=== PATIENT | female | born 2005 | race Caucasian/White ===

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

== ENCOUNTER 2024-02-07 05:33 | Outpatient (CLI) | payer OTHER, SELFPAY ==
[2024-02-07 14:58] LABS: Abs Immature Grans 0.01 10^3/uL (0.0-0.06); Absolute Basophil Count 0.02 10^3/uL (0.0-0.2); Absolute Eosinophil Count 0.03 10^3/uL (0.0-0.7); Absolute Lymphocyte Count 2.18 10^3/uL (1.2-3.4); Absolute Monocyte Count 0.26 10^3/uL (0.1-0.8); Absolute Neutrophil Count 3.88 10^3/uL (1.2-6.7); Basophils % 0.3; Eosinophils % 0.5; HCT 42.3 % (36.0-46.0); HGB 13.9 g/dL (11.2-15.7); Immature Grans % 0.2; Lymphocytes % 34.2; MCH 28.9 pg (27.0-33.0); MCHC 32.9 % (32.0-36.0); MCV 88 fL (80-95); MPV 10.3 fL (8.0-11.0); Monocytes % 4.1; Neutrophils % 60.7; Platelet Count 238 10^3/uL (130-400); RBC 4.81 10^6/uL (3.93-5.22); RDW 12.2 % (11.7-14.6); WBC 6.38 10^3/uL (4.4-10.8)
[2024-02-07 16:35] LABS: ALT 18 U/L (14-59); AST 14 U/L (15-37); Albumin 4.2 g/dL (3.4-5.0); Alkaline Phosphatase 49 U/L (46-116); Anion Gap 8.5 mmol/L (3-11); BUN 12 mg/dL (7-18); Bilirubin, Total 0.6 mg/dL (0.2-1.0); CO2 27.5 mmol/L (21.0-32.0); CREATININE 0.6 mg/dL (0.55-1.02); Calcium 8.8 mg/dL (8.5-10.1); Chloride 105 mmol/L (98-107); Glucose 104 mg/dL (74-106); Potassium 3.3 mmol/L (3.5-5.1); Sodium 141 mmol/L (136-145); TSH (W/Ref FT4) 1.69 uIU/mL (0.36-3.74); Total Protein 7.4 g/dL (6.4-8.2)
[2024-02-07 22:11] LABS: T3,Free 3.9 pg/mL (2.8-5.3)
== END 2024-02-07 05:34 | disposition home or self-care (01) ==
PROVIDERS: PCP Pediatrics; Visit Provider Neuromusculoskeletal Medicine & OMM
DX: R56.9 Unspecified convulsions (principal); Z83.49 Family history of other endocrine, nutritional and metabolic diseases
CPT/HCPCS: 36415; 80053; 84443; 84481; 85025

== ENCOUNTER 2024-06-12 16:36 | Outpatient (CLI) | payer OTHER, SELFPAY ==
--- NOTE | 2024-06-12 16:30 | RT.EKG_ITS ---
APPROVED REPORT Exam: Resting ECG Reason for Exam: syncope and collpase Patient Location: O HR:87 bpm ECG Measurements Heart Rate 87 AXIS FL 134 P 60 QRSd 73 QRS 64 QT 351 T 33 QTc 423 Conclusion Sinus rhythm...normal P axis, V-rate 50- 99 Normal Electrocardiogram
== END 2024-06-12 16:37 | disposition home or self-care (01) ==
LOC: DI.KIM 16:37
PROVIDERS: PCP Nurse Practitioner Family; Visit Provider Nurse Practitioner Family
DX: R55 Syncope and collapse (principal)
CPT/HCPCS: 93010

== ENCOUNTER 2024-06-13 01:56 | Outpatient (CLI) | payer OTHER, SELFPAY ==
--- OUTSIDE RECORDS SUMMARY | 2024-06-13 02:04 | XMS_ITS | Encounter Summary ---
[place] [address] Care Team Providers Care Investigation Division Sergeant Name Role Phone Lizzette Wolf APRN Primary Care Provider Unav ailable Reason for Visit * Reason Onset Date Comments Results 08/05/2020 COVID-19 Negativ e Encounter Details Date Type Department Care Team (Late st Contact Info) Description 08/05/2020 [place] [id number] Pamela Torres LNA Results (COVID-19 Negative) Social History Tobacco Use Types Packs/Day Years Used Date Smoking Tobacco: Passive Smo ke Exposure - Never Smoker Comments:Biological mother s mokes outside and in car. Sex and Gender Information Value Date Recorded Sex Assigned at Not on file Gender Identity Not on file Sexual Orientation Not on file documented as of this encounter Miscellaneous Notes * Telephone Encounter - Pamela Danielle LNA - 08/05/2020 2:09 PM EDT Telephone call to pt to inform pt of NEGATIVE Covid-19 test results. Pt verbalizes understanding and will contact healthcare provider if any concerns or requires further care. documented in this encounter Plan of Treatment Not on file documented as of this encounter Visit Diagnoses Not on filedocumented in this encounter Care Teams Investigation Division Sergeant Relationship Specialty Start Date End Date Lizzette Wolf APRN PCP - General 05/20/14 08/13/20 documented as of this encounter
--- OUTSIDE RECORDS SUMMARY | 2024-06-13 02:04 | XMS_ITS | Encounter Summary ---
Author Organization [facility] Address [facility] [place] [address] Care Team Providers Care Tool Designer Apprentice Name Role Phone LucianoAshley Kamala MCDONOUGH Primary Care Provider Unav ailable Reason for Visit * Reason Comments Establish Care Encounter Details Date Type Department Care Team (Late st Contact Info) Description 11/02/2014 8:00 AM EST Office [place] [address] Francoise Pagan MD [facility] [place] [address] Tonsillar and adenoid hypertrophy; HEATHER (obstructive sleep apnea) Discharge Disposition: Home Social History Tobacco Use Types Packs/Day Years Used Date Smoking Tobacco: Passive Smo ke Exposure - Never Smoker Comments:Biological mother s mokes outside and in car. Sex and Gender Information Value Date Recorded Sex Assigned at Not on file Gender Identity Not on file Sexual Orientation Not on file documented as of this encounter Last Filed Vital Signs Vital Sign Reading Time Taken Comments Blood Pressure 109/66 11/02/2014 7:53 AM EST Pulse 86 11/02/2014 7:53 AM EST Temperature 37.3 ??C (99.1 ??F) 11/02/2014 7:53 AM ES T Respiratory Rate - - Oxygen Saturation - - Inhaled Oxygen Concentration - - Weight 46.2 kg (101 lb 12.8 oz) 11/02/2014 7:53 AM EST Height 156.2 cm (5' 1.5) 11/02/2014 7:53 AM EST Body Mass Index 18.92 11/02/2014 7:53 AM EST Body Mass Index Percentile 67.00% 11/02/2014 7:5 3 AM EST Growth Chart: [facility] (Girls, 2- 20 Years) documented in this encounter Progress Notes * Francoise Pagan MD - 11/02/2014 8:04 AM EST Pediatric Otolaryngology Consultation Note Date of Visit: 11/02/2014 Location of Visit: Otolaryngology Clinic, [facility] Patient: Parul Solano ([id number]; 2005) Primary Care Provider: ASHLEY WOLF APRN Referring Provider: Ashley Wolf Reason for Visit: Parul is seen at the request of Ashley Wolf for evaluation and opinion on T+A. History of Present Illness: Parul is a 9 y.o. female who is accompanied to the clinic today by herfather, presents with removal of tonsils. The patient has had enlarged tonsils and sleeping and snoring issues for years. She usually has her mouth open. She does not wake up in the middle of the night unless she has to go to the bathroom. She is a restless sleeper and tosses and turns. She sometimes feels as though she gets a good night's sleep. Her father had not noticed pauses or gasping. Hehas noticed her waking herself up from the snoring. No difficulty with swallowing or eating. She has not had frequent sore throat. She has not had strep throat. She denies stuffy or runny nose. She has not had problems with ear infections. She is doing well in school. She had a little problem with behavior last year. She does not feel tired during the day. She underwent sleep study on 09/11/2014 which revealed AHI 5.9, O2 jean-paul 87%. Problem List: Patient Active Problem List Diagnosis Code ??? Snoring disorder 786.09 ??? Snoring 786.09 ??? HEATHER (obstructive sleep apnea) 327.23 Past Medical History: No past medical history on file. Past Surgical History: No past surgical history on file. history: no complication Prior Hospitalizations: no Bleeding history: no Medications: Outpatient Prescriptions Marked as Taking for the 11/02/14 encounter (Office Visit) with Darya Pagan MD Medication Sig Dispense Refill ??? Multivitamins Tablet, Chewable Take 3 tablets by mouth every morning. ??? ASCORBATE CALCIUM (VITAMIN C ORAL) Take 2 tablets by mouth every morning. ??? Melatonin 1 mg Tablet Take by mouth every evening. ??? CLONIDINE HCL ORAL Take 0.5 mg by mouth every evening. No Facility-Administered Medications for the 11/02/14 encounter (Office Visit) with Francoise Pagan MD. Allergies: Review of patient's allergies indicates no known allergies. Social History: Lives [place] [place] [facility] [id number], with dad, step-mom, 2 brothers, 1 sister, which is 30 min away. Daycare/School: 6th grade. Secondhand smoke exposure: yes. Pets: dog. Immunizations UTD. Family History: Family History Problem Relation Age of Onset ??? Arthritis ??? Diabetes ??? Hypertension ??? Anxiety Disorder ??? Cancer tonsil ??? Thyroid Disease Review of Systems: Pertinent positive findings discussed above. No other findings on review of constitutional, visual, cardiovascular, respiratory, gastrointestinal, genitourinary, musculoskeletal, dermatologic, neurological, psychiatric, endocrine, hematologic or immunologic systems. Physical Examination: Vitals: Blood pressure 109/66, pulse 86, temperature 37.3 ??C (99.1 ??F), temperature source Tympanic, height 156.2 cm (5' 1.5), weight 46.176 kg (101 lb 12.8 oz). Body mass index is 18.93 kg/(m^2). Normal Abnormal/Notable findings General Age-appropriate behavior, no acute distress. Interactive and cooperative. Face Symmetric without dysmorphic features. Skin Dry and intact without rash, lesion, or birthmark. Eyes Pupils are equal, round, and reactive to light. Periocular structures and conjunctiva healthy without lesions. Wearing glasses Ears Auricles symmetric bilaterally without lesions. External auditory canals without cerumen impaction or drainage. On the left and right, tympanic membranes intact with normal landmarks and mobility. Middle ears without effusions. On the left and right, EAC clear, tympanic membrane intact, middleear aerated. Nose Patent anteriorly; healthy pink mucosa without lesions. No purulent drainage, no significant inferior turbinate hypertrophy. Septum without significant deviation. Drainage minimal, inferior turbinate inflamed on L>R Oral cavity Lips and gingiva pink, moist, without lesions. Gums/dentition healthy. Tongue and floorof mouth soft without lesions or masses. Hard palate without lesions. Oral pharynx Soft palate without lesions; uvula intact without evidence of submucus cleft palate. Oropharynx symmetric. tonsils 3+ Neck Soft, supple, normal range of motion. Trachea midline without deviation. Lymphatic No abnormal cervical lymphadenopathy. Lung Clear to auscultation bilaterally, symmetric breath sounds, without wheezes. Breathing comfortably without stridor or grunting, flaring or retractions. Heart Regular rate and rhythm without murmur. Abdomen Soft, non-tender, non-distended, normal bowel sounds. Extremities Warm, well-perfused, mobile, normal strength. No cyanosis or edema. Neurologic/ Psych Normal speech and voice. Normal mood and affect. Impression: Parul is a 9 y.o. female with a history of tonsil and probable adenoid hypertrophy andmild HEATHER/SDB Recommendations: After reviewing the history and examining the patient, I recommend the followin. Tonsillectomy and adenoidectomy. The nature of the procedure as well as the risks, benefits, andalternatives to the procedure were discussed with the parent(s) and patient. The procedure is performed in the operating room under general anesthesia with its own attendant risks including . The risks of the procedure include, but are not limited to, bleeding possibly requiring re- admission, return to the operating room for control, or blood transfusion, infection, nasopharyngeal scarring and stenosis, velopharyngeal insufficiency (VPI), airway obstruction or respiratory distress requiring re-intubation, tongue, teeth, or jaw injury, voice change, failure, or need for additional surgery. Sore throat, difficulty and pain with swallowing, ear pain, bad breath, nausea, vomiting, and low grade fevers are not uncommon consequences of the procedure. 2. Tonsillectomy and adenoidectomy handout was given to the patient and family and their questions were answered to their satisfaction. 3. Informed consent was obtained at today's visit. 4. Schedule patient for surgery in the main OR at the family's earliest convenience. The patient may need to be admitted to the pediatric inpatient floor for airway observation and IV hydration and medication postoperatively because of her documented HEATHER/SDB. 5. Post-operative visit in the ENT clinic in 4-6 weeks after surgery if the patient and family haveany concerns or problems. Francoise Pagan MD, PhD Guest Room Inspector Pediatric Otolaryngology [facility] [place], [place] [address] Office documented in this encounter Plan of Treatment Not on file documented as of this encounter Procedures Procedure Name Priority Date/Time Associated Diagnosis Comments TONSILLECTOMY AND ADENOIDECTOMY; UNDER AGE 12 Routine 11/02/2014 8:28 AM EST documented in this encounter Visit Diagnoses Diagnosis Tonsillar and adenoid hypertrophy Hypertrophy of tonsil with adenoids HEATHER (obstructive sleep apnea) Obstructive sleep apnea (adult) (pediatric) documented in this encounter Care Teams Tool Designer Apprentice Relationship Specialty Start Date End Date Ashley Wolf, MEDICAL CENTER REPRESENTATIVE PCP - General 05/20/14 08/13/20 documented as of this encounter
--- OUTSIDE RECORDS SUMMARY | 2024-06-13 02:04 | XMS_ITS | Encounter Summary ---
Author Organization [place] [address] Care Team Providers Care Metallurgical Technician Name Role Phone Arik Wolfi Kamala MCDONOUGH Primary Care Provider Unav ailable Encounter Details Date Type Department Care Team (Late st Contact Info) Description 12/23/2014 8:37 AM EST Anesthesia Event [place] [address] Tanisha Du MD [facility] [place] [address] Itz Rodriguez MD [facility] [place] [address] Anesthesia Record Procedure Summary Procedure Name Responsible Anesthesiologist Anesthesia Start Time Anesthesia Stop Time TONSILLECTOMY AND ADENOIDECTOMY; UNDER AGE 12 (WRVU 4.22) (Bilateral: Mouth) Tanisha Du MD 12/23/14 0837 12/23/14 0927 Events Date Time Event Comment 12/23/2014 0837 Start 0839 AN Verify 0840 An Start Data 0845 An Induction 0847 IV Start 0849 An Intubation 0850 Anesthesia Ready 0918 Extubation/LMA Out 0921 an stop data 0927 Stop 0943 Meds Name Total Propofol INF 60.45 mg fentaNYL 25 mcg Ondansetron 4 mg Dexamethasone 4 mg Dexmedetomidine 12 mcg * Agents Name O2 Air N2O Sevoflurane (et) * Blood No blood administrations on file. Lines, Drains, and Airways Type Details Placement Removal Incision 12/23/14; throat (removal of tonsils and adenoids.); 06/26/22 (LDA cleanup utility RA#[id number]); 1715 (LDA cleanup utility RA#[id number]) 12/23/14 0000 by Hui Chaves RN 06/26/22 1715 by Maegan Chaudhari (RETIRED) Peripheral IV Line - Single Lumen 12/23/14; 0837; 20 gauge; 12/23/14; 1020 (cannula intact, gauze applied) 12/23/14 0837 by Itz Rodriguez MD 12/23/14 1020 by Jocelyne Garcia RN ETT Mask Ventilation: Ea mayo (1); ETT Type: Cuffed; ETT Size: 6 mm; Mac Blade: 2; Notes: Asleep, Pre-O2; Attempts: 1; Laryngoscopy Grade: 1; ETT Placement Verified By: Auscultation, Capnometry; Secured at Teeth: 16 cm; Removal Date: 12/23/14; Removal Time: 91712/23/14 0849 by Itz Rodriguez MD 12/23/14 0918 by Itz Rodriguez MD documented in this encounter Social History Tobacco Use Types Packs/Day Years Used Date Smoking Tobacco: Passive Smo ke Exposure - Never Smoker Comments:Biological mother s mokes outside and in car. Sex and Gender Information Value Date Recorded Sex Assigned at Not on file Gender Identity Not on file Sexual Orientation Not on file documented as of this encounter OR Notes * Anesthesia Postprocedure Evaluation - Itz Rodriguez MD - 12/23/2014 1:17 PM EST Patient: Parul Solano Procedure(s) Performed: Procedure(s): TONSILLECTOMY AND ADENOIDECTOMY; UNDER AGE 12 Actual Anesthetic: general Patient location: PACU Post-op pain: Adequate analgesia Post-op nausea: no nausea or vomiting Last Vitals: Filed Vitals: 12/23/14 1025 Pulse: Temp: 36.9 ??C (98.4 ??F) Resp: Post-op cardiovascular and respiratory status: is stable Level of consciousness: awake, alert and oriented Complications: no apparent complications and tolerated the procedure well Fluid Status: normal Initially teary and confused, but overall stable PACU course. * Anesthesia Preprocedure Evaluation - Itz Rodriguez MD - 12/22/2014 4:08 PM EST Pre-Anesthesia Evaluation for: Parul Solano a 9 y.o. female. Procedure(s): TONSILLECTOMY AND ADENOIDECTOMY; UNDER AGE 10 Patient Active Problem List Diagnosis ??? Tonsillar and adenoid hypertrophy ??? HEATHER (obstructive sleep apnea) PSG 09/11/2014 AHI 5.9, O2 jean-paul 87% ??? Snoring ??? Snoring disorder No past medical history on file. No past surgical history on file. History Substance Use Topics ??? Smoking status: Passive Smoke Exposure - Never Smoker ??? Smokeless tobacco: Not on file Comment: Biological mother smokes outside and in car. ??? Alcohol Use: Not on file History Drug Use Not on file No Known Allergies Medications: MAR and/or home medications have been reviewed. Physical Exam: There were no vitals filed for this visit. There is no height or weight on file to calculate BMI. Airway Assessment: Mallampati: I TM distance: >3 FB Neck ROM: full Cardiovascular Assessment: Pulmonary Assessment: [place] [facility] [place]: Anesthesia Plan: ASA 2 general, Generally healthy 9 year old female with a history of mild HEATHER/sleep disordered breathing who presents for tonsillectomy and adenoidectomy. She had a cold approximately 1 month ago and feels well now except persistent non-productive cough.No fever or other remaining constitutional signs. Informed Consent: [facility]. Assessment: documented in this encounter Plan of Treatment Not on file documented as of this encounter Visit Diagnoses Not on filedocumented in this encounter Administered Medications Inactive Administered Medications - up to 3 most recent administrations Medication Order MAR Action Action Date Dose Rate Site dexamethasone (DECADRON) injection PRN, Starting on Sun12/23/14 at 0857, Until Sun12/23/14 at 0927, Anesthesia Intra-op, Routine Given 12/23/2014 8:57 AM EST 4 mg dexmedetomidine (PRECEDEX) injection PRN, Starting on Sun12/23/14 at 0858, Until Sun12/23/14 at 09, Anesthesia Intra-op, Routine Given 12/23/2014 9:09 AM EST 2 mcg Given 12/23/2014 9:07 AM EST 2 mcg Given 12/23/2014 9:04 AM EST 2 mcg fentaNYL 50mcg/mL injection PRN, Starting on Sun12/23/14 at 0854, Until Sun12/23/14 at 09, Pain, Anesthesia Intra-op, Routine Given 12/23/2014 8:54 AM EST 25 mcg ondansetron (ZOFRAN) injection PRN, Starting on Sun12/23/14 at 0857, Until Sun12/23/14 at 09, Nausea, Anesthesia Intra-op, Routine Given 12/23/2014 8:57 AM EST 4 mg propofol (DIPRIVAN) infusion CONTINUOUS PRN, Starting on Sun12/23/14 at 0850, Until Sun12/23/14 at 09, Anesthesia Intra-op, Routine New Bag 12/23/2014 8:50 AM EST 50 mcg/kg/min 14 mL/hr documented in this encounter Care Teams Metallurgical Technician Relationship Specialty Start Date End Date Lizzette Wolf, PAVING SUPERVISOR PCP - General 05/20/14 08/13/20 documented as of this encounter
--- OUTSIDE RECORDS SUMMARY | 2024-06-13 02:04 | XMS_ITS | Encounter Summary ---
Author Organization [facility] Address [address] [place] [address] Care Team Providers Care Monorail Crane Operator Name Role Phone Jayne Mercedes Ashvin SEAMER PANTY HOSE Primary Care Provider + Encounter Details Date Type Department Care Team (Late st Contact Info) Description 02/07/2024 Lab Requisition [facility] Pathology & Laboratory Medicine - [facility] [address], [place] [address] Outr Resulting Lab, Provider Social History Tobacco Use Types Packs/Day Years Used Date Smoking Tobacco: Never Assessed Sex and Gender Information Value Date Recorded Sex Assigned at Not on file Gender Identity Not on file Sexual Orientation Not on file documented as of this encounter Plan of Treatment Not on file documented as of this encounter Procedures Procedure Name Priority Date/Time Associated Diagnosis Comments T3 FREE Routine 02/07/2024 14:30 EDT documented in this encounter Results * T3 FREE (02/07/2024 14:30 EDT) T3, Free 3.9 2.8 - 5.3 pg/mL 02/07/2024 22:08 EDT [facility] Blood VENOUS BLOOD / Unknown 02/07/2024 14:30 EDT 02/07/2024 21:38 EDT Provider Outr Resulting Lab CHEMISTRY & BLOOD GAS ORDERABLES [facility] [address], [place] [id number] documented in this encounter Visit Diagnoses Not on filedocumented in this encounter Care Teams Monorail Crane Operator Relationship Specialty Start Date End Date Jayne Mercedes NP [address] [address] PCP - General 05/28/19 documented as of this encounter
--- OUTSIDE RECORDS SUMMARY | 2024-06-13 02:04 | XMS_ITS | Encounter Summary ---
[place] [address] Care Team Providers Care Cable Assembler And Swager Name Role Phone Lizzette Wolf APRN Primary Care Provider Unav ailable Encounter Details Date Type Department Care Team (Late st Contact Info) Description 11/02/2014 Tele[place] [id number] Heather Khalil Social History Tobacco Use Types Packs/Day Years Used Date Smoking Tobacco: Passive Smo ke Exposure - Never Smoker Comments:Biological mother s mokes outside and in car. Sex and Gender Information Value Date Recorded Sex Assigned at Not on file Gender Identity Not on file Sexual Orientation Not on file documented as of this encounter Miscellaneous Notes * Telephone Encounter - Heather Khalil - 11/02/2014 9:26 AM EST Booked surgery with parents in clinic, confirmed surgery date of 12/23/14, instruction packet given,follow up N/A. documented in this encounter Plan of Treatment Not on file documented as of this encounter Visit Diagnoses Not on filedocumented in this encounter Care Teams Cable Assembler And Swager Relationship Specialty Start Date End Date Lizzette Wolf APRN PCP - General 05/20/14 08/13/20 documented as of this encounter
--- OUTSIDE RECORDS SUMMARY | 2024-06-13 02:04 | XMS_ITS | Clinical Summary ---
Author Organization [facility] [place] [address] Care Team Providers Care Brake Engineer Name Role Phone Charlie Cha MD Primary Care Provider [phone] Allergies No known active allergies Medications Medication Sig Dispensed Refills Start Date End Date Status Melatonin 1 mg Tablet Take by mouth every evening. Active CLONIDINE HCL ORAL Take 0.5 mg by mouth every evening. Active Multivitamins Tablet, Chewable Take 3 tablets by mouth every morning. Active ASCORBATE CALCIUM (VITAMIN C ORAL) Take 2 tablets by mouth every morning. Active ibuprofen (ADVIL;MOTRIN) 100 mg/5 mL Suspension Take 20 mLs by mouth every 6 hours as needed for Pain. Alternate ibuprofen (advil, motrin) with acetaminophen (tylenol) products every 3 hrs to get each every 6 hr 12/23/2014 Active Additional Information Patient not taking.Reported on 10/12/2020 alclometasone (ACLOVATE) 0.05 % OintmentIndications :Atopic dermatitis, unspecified type Apply topically to affected areas on face twice daily for 2 weeks. 30 g 1 01/14/2018 Active Additional Information Patient not taking.Reported on 10/12/2020 Active Problems Problem Noted Date Diagnosed Date Tonsillar and adenoid hypertrophy 11/02/2014 HEATHER (obstructive sleep apnea) 09/22/2014 Overview (11/02/2014): PSG 09/11/2014 AHI 5.9, O2 jean-paul 87% Snoring 09/18/2014 Snoring disorder 08/01/2014 Family History Medical History Relation Comments Thyroid Disease Maternal Grandfather Diabetes Maternal Grandmother Bipolar Disorder Mother Substance Use Disorder Mother Arthritis Other 1 Diabetes Other 2 Hypertension Other 3 Anxiety Disorder Other 4 Cancer Other 5 tonsil Thyroid Disease Other 6 Relation Status Comments Maternal Grandfather Maternal Grandmother Mother Other 1 Other 2 Other 3 Other 4 Other 5 Other 6 Social History Tobacco Use Types Packs/Day Years Used Date Smoking Tobacco: Passive Smo ke Exposure - Never Smoker Comments:Biological mother s mokes outside and in car. Sex and Gender Information Value Date Recorded Sex Assigned at Not on file Gender Identity Not on file Sexual Orientation Not on file Last Filed Vital Signs Vital Sign Reading Time Taken Comments Blood Pressure 104/65 10/12/2020 12:55 PM EST Pulse 113 10/12/2020 12:55 PM EST Temperature 36.9 ??C (98.4 ??F) 12/23/2014 10:[address] Respiratory Rate 20 12/23/2014 10:15 AM EST Oxygen Saturation 100% 12/23/2014 10:15 AM EST Inhaled Oxygen Concentration - - Weight 57.7 kg (127 lb 3.2 oz) 10/12/2020 12:55 PM EST Height 167.2 cm (5' 5.83) 10/12/2020 12:[address] Body Mass Index 20.64 10/12/2020 12:55 PM EST Plan of Treatment Health Maintenance Due Date Last Done Comments Chlamydia Screening 2018 HPV vaccine (1 - 3-dose series) 2018 HIV screen 2021 Hepatitis C Screening 2021 Hepatitis B vaccine (0-59 yrs) (1) 2022 Tdap adult 2022 Tetanus vaccine 2022 Covid-19 Vaccine (1 - 2022-24 season) 2023 Influenza (Flu) vaccine (1 o f 1 - Influenza standard series) 06/29/2024 Care Teams Brake Engineer Relationship Specialty Start Date End Date Charlie Cha MD [address] [place] [id number] PCP - General Pediatrics 08/14/20
--- OUTSIDE RECORDS SUMMARY | 2024-06-13 02:04 | XMS_ITS | Encounter Summary ---
Author Organization [facility] [place] [address] Care Team Providers Care Leading Firefighter Name Role Phone Lizzette Wolf APRN Primary Care Provider Unav ailable Encounter Details Date Type Department Care Team (Late st Contact Info) Description 01/19/2018 Telephone Dermatology at [facility] [address] [place] [address] Nishi Buckner MD [facility] [address] [facility] [place] [address] Social History Tobacco Use Types Packs/Day Years Used Date Smoking Tobacco: Passive Smo ke Exposure - Never Smoker Comments:Biological mother s mokes outside and in car. Sex and Gender Information Value Date Recorded Sex Assigned at Not on file Gender Identity Not on file Sexual Orientation Not on file documented as of this encounter Miscellaneous Notes * Telephone Encounter - Nishi Buckner - 01/19/2018 12:59 PM EDT Called Ms. Solano at 12:59 PM on 01/19/18 to follow-up. Spoke with her step-mom who reports that sheis doing better, with less redness and swelling around the eyes. Redness and pain have decreased, and rash is less crusty. She is still fatigued, but is overall seeming to be improving slowly. Recommended that she continue with the topical steroid and the oral antibiotic. I anticipate ongoing improvement as she continues with the treatment plan. Encouraged patient's step-mom to call back with any questions or concerns. NISHI BUCKNER MD Resident in Dermatology [facility] documented in this encounter Plan of Treatment Not on file documented as of this encounter Visit Diagnoses Not on filedocumented in this encounter Care Teams Leading Firefighter Relationship Specialty Start Date End Date Lizzette Wolf, CHIEF EXECUTIVE OFFICER PCP - General 05/20/14 08/13/20 documented as of this encounter
--- OUTSIDE RECORDS SUMMARY | 2024-06-13 02:04 | XMS_ITS | Encounter Summary ---
Author Organization Formerly [facility] [place] [address] Care Team Providers Care Platform Beater Name Role Phone Lizzette Wolf APRN Primary Care Provider Unav ailable Encounter Details Date Type Department Care Team (Late st Contact Info) Description 11/03/2014 [place]phone [place] [phone] Hoda Moncada, RN Social History Tobacco Use Types Packs/Day Years Used Date Smoking Tobacco: Passive Smo ke Exposure - Never Smoker Comments:Biological mother s mokes outside and in car. Sex and Gender Information Value Date Recorded Sex Assigned at Not on file Gender Identity Not on file Sexual Orientation Not on file documented as of this encounter Miscellaneous Notes * Telephone Encounter - Hoda Moncada RN - 11/03/2014 3:04 PM EST Dad returning my call Advised him to not give any NSAIDS- Advil, Motrin, Ibuprofen 10 days prior to surgery. Also suggested he check with PCP re: Melatonin and other meds.Dad said he would. documented in this encounter Plan of Treatment Not on file documented as of this encounter Visit Diagnoses Not on filedocumented in this encounter Care Teams Platform Beater Relationship Specialty Start Date End Date Lizzette Wolf APRN PCP - General 05/20/14 08/13/20 documented as of this encounter
--- OUTSIDE RECORDS SUMMARY | 2024-06-13 02:04 | XMS_ITS | Encounter Summary ---
[place] [address] Care Team Providers Care Relocation Specialist Name Role Phone Lizzette Wolf APRN Primary Care Provider Unav ailable Encounter Details Date Type Department Care Team (Late st Contact Info) Description 06/10/2014 External Results Pediatric [place] [phone] Unknown None Social History Tobacco Use Types Packs/Day Years Used Date Smoking Tobacco: Never Assessed Sex and Gender Information Value Date Recorded Sex Assigned at Not on file Gender Identity Not on file Sexual Orientation Not on file documented as of this encounter Plan of Treatment Not on file documented as of this encounter Procedures Procedure Name Priority Date/Time Associated Diagnosis Comments ECG SCAN Routine 05/22/2014 documented in this encounter Results * Scan Doc: ECG (05/22/2014) Unknown MEDIA MGR SCAN EXT O RDR/RSLT documented in this encounter Visit Diagnoses Not on filedocumented in this encounter Care Teams Relocation Specialist Relationship Specialty Start Date End Date Lizzette Wolf, CEASAR PCP - General 05/20/14 08/13/20 documented as of this encounter
--- OUTSIDE RECORDS SUMMARY | 2024-06-13 02:04 | XMS_ITS | Encounter Summary ---
[place] [address] Care Team Providers Care Grinder Machine Setter Name Role Phone Lizzette Wolf APRN Primary Care Provider Unav ailable Encounter Details Date Type Department Care Team (Late st Contact Info) Description 07/22/2014 1:00 PM EDT Office Visit Sleep Center at [facility] [address] [place] [address] Esther Delcid V, [facility] [place] [address] Snoring disorder (Primary Dx) Social History Tobacco Use Types Packs/Day Years Used Date Smoking Tobacco: Never Assessed Sex and Gender Information Value Date Recorded Sex Assigned at Not on file Gender Identity Not on file Sexual Orientation Not on file documented as of this encounter Last Filed Vital Signs Vital Sign Reading Time Taken Comments Blood Pressure 104/68 07/22/2014 1:14 PM EDT Pulse 81 07/22/2014 1:14 PM EDT Temperature - - Respiratory Rate - - Oxygen Saturation 98% 07/22/2014 1:14 PM EDT Inhaled Oxygen Concentration - - Weight 43.6 kg (96 lb 3.2 oz) 07/22/2014 1:14 PM EDT Height 152.4 cm (5') 07/22/2014 1:14 PM EDT Body Mass Index 18.79 07/22/2014 1:14 PM EDT Body Mass Index Percentile 67.83% 07/22/2014 1:1 4 PM EDT Growth Chart: CDC (Girls, 2- 20 Years) documented in this encounter Progress Notes * Ned Farmer MD - 08/06/2014 9:59 AM EDT I evaluated Ms. Parul Solano with Dr. Delcid and performed mead aspects of the history and examination. I actively participated in the formulation of the management strategy. I have reviewed Dr. Delcid's note and agree with the assessment and recommendations. NED FARMER MD * Ned Farmer MD - 07/22/2014 2:41 PM EDT Snoring, fragmented sleep (improved with clonidine) and inattention suggestive of HEATHER. PSG recommended. * Esther Delcid DO - 07/22/2014 1:19 PM EDT Sleep Medicine Consultation Note HPI: Ms. Parul Solano is a 9 y.o. girl seen at the request of Lizzette Wolf APRN for advice regarding suspected obstructive sleep apnea. Parul presented with her father and stepmother. Parul has problems with her sleep for all her life. She is a very restless sleeper , her sleep is usually very fragmented with episodes of loud snoring and awakenings especially when she sleeps on her back. The patient's night sleep quality is varies but since she was started on PO Clonidine qhs, her sleep quality has improved. Parul could be very andres if her prior night sleep was not sufficient , her school performance also is affected by the previous night sleep quality as well as her attentivness and level of anxiety. Parul is also complaining of recurrent headaches. The patient is being treated with Fluoxetine , Melatonin and Clonidine with significant improvementof sleep quality after introduction of Clonidine. Parul's sleep schedule is not well regulated, when she stay in her father house she used to fall asleep around 8-8:30 pm and sleeps till 7-8 am, when she is in her mother house, her sleep hours are not well regulated. ( Parul visiting her mother every weekend). Parul, as per her stepmother report , was evaluated by ENT specialist in the past for tonsillar hypertrophy with c/o snoring setting of snoring ,at that moment T&A was not offered ,so the patientwas referred to be evaluated at our Sleep Center. Snoring: yes , all her life Severity: loud Frequency: not every night 2-3 times /week Duration: very long time ( years) Over time: all life Modifying factors: turning from the back to her side Observed Apneas: no Mouth Breathing: nose Dry Mouth: no Nocturnal Gasping: no Nasal Obstruction: sometimes Weight: stale Sleep Pattern: Location: bedroom Bed/Recliner/Wedge:bed # of pillows under head: 2-3 pillows Position: side Bedtime: 8-8:30 am Lights out: 8-8:30 am Latency: several minutes Awakenings: not now when she is on Clonidine Wake time: not always the same but usually 7-8 am Daytime Symptoms: [place]: was not recorded Upon Awakening: sometimes yes, sometimesnot Daytime fatigue/sleepiness: no Naps: no Involuntary Dozing: no Cognitive Symptoms:no Driving:n/a Sleep Review of Symptoms: Parasomnias: Sleep Walking: I do not know Dream Enactment: move a lot during the sleep Bruxism: no Motor: RLS: no PLMS: no Narcolepsy: Hallucinations: no Paralysis:no Cataplexy: no Family History: Family history of sleep disorders: no PMH: - not significant Social History: Employment: school student Alcohol: n/a Smoking:second hand exposure in mother's house Other drugs: no Caffeine: no ROS: CON: weight change: see HPI ENT: nasal obstruction: see HPI NEURO: sleep related headaches: no CV: chest pain: no Palpitations: no LE edema: no PUL: SOB: no PSY: Depression: no Anxiety: no GI: GERD: no : Nocturia: no MSK: Pain that interferes with sleep: no ALL: Environmental Allergies: no MSE: Alert and appropriate: yes Oriented to person, place and time: yes Mood: sad Affect: appropriate PE: General:AOx3 not in apparent distress Body mass index is 18.79 kg/(m^2). 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 Parul Solano is a 9 y.o. female who is seen to evaluate for possible obstructive sleep apnea. Given the patient's recurrent snoring during the nocturnal sleep in supine sleep, fragmented nights, non-restorative nocturnal sleep, daytime symptoms of inattentiveness ,anxiety and problems with mood and behavior, complaints of headache and findings on physical exam ( tonsillar hypertrophy 3+) the risk of HEATHER could be considered as very high. Uncontrolled HEATHER in adolescents could lead to cognitive ,mental and physical delays, psychosocial and behavioral problems and in the long run could increase the risk of developing cardio-vascular conditions so, evaluation and subsequent treatment of HEATHER in these settings is highly warranted. With consideration for T&A the patient will require to be reevaluated by ENT after PSA is performed . Repeat PSG in 2-4 months after T&A will be considered for evaluation of residual / post surgical degree of HEATHER. The pathophysiology of, the reasons to treat and treatment options for obstructive sleep apnea wereall reviewed with the patient and patient's parents today. History provided by: the patient and by her parents. Records reviewed:no record available Time spent face to face: 60 min Time spent devoted to counseling and discussion: 25 min Reccomendations: 1) Polysomnography with TCO2 monitoring. The patient indicates understanding of these issues and agrees with the plan. The case was discussed with Dr. Farmer. Esther Delcid M.D. ( Sleep Medicine Fellow) documented in this encounter Plan of Treatment Not on file documented as of this encounter Visit Diagnoses Diagnosis Snoring disorder- Primary Other dyspnea and respiratory abnormality documented in this encounter Care Teams Grinder Machine Setter Relationship Specialty Start Date End Date Lizzette Wolf, CEASAR PCP - General 05/20/14 08/13/20 documented as of this encounter
--- OUTSIDE RECORDS SUMMARY | 2024-06-13 02:04 | XMS_ITS | Encounter Summary ---
Author Organization [facility] Address [facility] [place] [address] Care Team Providers Care Ophthalmic Assistant Name Role Phone LucianoAshley Kamala MCDONOUGH Primary Care Provider Unav ailable Encounter Details Date Type Department Care Team (Late st Contact Info) Description 12/23/2014 8:53 AM EST - 12/23/2014 9:51 AM EST Surgery [place] [address] Francoise Ford MD [facility] [place] [address] TONSILLECTOMY AND ADENOIDECTOMY; UNDER AGE 12 (WRVU 4.22) Social History Tobacco Use Types Packs/Day Years [...] Sign Reading Time Taken Comments Blood Pressure - - Pulse 86 12/23/2014 9:45 AM EST Temperature 36.2 ??C (97.2 ??F) 12/23/2014 9:25 AM ES T Respiratory Rate 20 12/23/2014 9:45 AM EST Oxygen Saturation 99% 12/23/2014 9:45 AM EST Inhaled Oxygen Concentration - - Weight 46.5 kg (102 lb 8.2 oz) 12/23/2014 8:20 A M EST Height - - Body Mass Index - - documented in this encounter Discharge Instructions * Discharge Instructions* Jocelyne Garcia RN - 12/23/2014 9:37 AM EST 1. Go home and rest. You may be sleepy for several hours. Take it easy as sudden position changes may cause nausea. 2. Be careful on stairs, as you may be unsteady on your feet. 3. Follow a light to regular diet as tolerated today. If nausea occurs, start with clear liquids, and progress slowly to a regular diet. 4. IV site - slight redness or tenderness is normal, you can use warm compresses. If tenderness andredness increases or foul drainage occurs, please contact your M.D. 5. Children may be cranky or irritable, and should be supervised closely. No bike riding, skateboarding, or gym set activities for 24 hours. Patients who have had endotracheal tubes. (This tube, used by the anesthesia department, is passed down your throat after you are asleep, to ensure safe air passage during your operation). 1. A sore throat is normal due to the tube. Cold liquids or soothing lozenges will help ease the discomfort. 2. The generalized muscle aches are due to the medication given to you just before the tube is inserted. As the medication wears off, you may develop muscle soreness, which usually goes away in 12-24hours. [facility] - Information Same Day Surgery * Patient Instructions* Pilar Mac - 12/23/2014 9:21 AM EST Patient Information Sheet: TONSILLECTOMY AND ADENOIDECTOMY What to Expect: Most children require 7 to 10 days to recover from the surgery. Some may recover more quickly; others can take up to 2 weeks for a full recovery. Pain: Children will have moderate to severe throat pain after surgery. Many patients will also report pain in the ear (referred from the throat) or jaw and neck (due to positioning in the operating room). Use as-directed acetaminophen- narcotic pain medication (Lortab or Roxicet) if prescribed. Unless otherwise advised by your surgeon, you may also use ibuprofen (Motrin) in between the scheduled doses of acetaminophen-containing pain medication. Alternate the plain acetaminophen or prescribed acetaminophen-narcotic combination medication (Lortab or Roxicet) with [id number]-poaxgxz ibuprofen (Motrin, Advil) in a staggered fashion. Each medicine, when used alone, is given every 6 hours; however,if you stagger the dosing and go hyrq-zuy-rblkk between the two medications, you can provide something for pain relief every 3 hours.The mead is to prevent pain from getting out of hand and limiting the patient???s oral intake. This will require waking the child up in the middle of the night the first 2 nights after surgery for a ???midnight dose.?? As pain control improves, discontinue the acetaminophen-narcotic pain medication and transition to either ibuprofen (Motrin) and/or acetaminophen (Tylenol). A humidifier may help soothe the throat at night. DO NOT USE aspirin for 2 weeks before orafter surgery as it may cause bleeding. Drinking & Eating: The most important requirement for recovery is for the patient to drink plenty of fluids. Offer mild juices (apple), sports drinks, popsicles, and Jell-O (pudding, yogurt, and ice-cream). Some patients experience nausea and vomiting after the surgery caused by the general anesthetic; this usually resolves within the first 24 hours. Contact the office if there are signs of dehydration (urination less than 2-3 times a day or crying without tears). Generally, there are no food restrictions after surgery. The sooner the child eats and chews, the quicker the recovery. Some temporary weight loss may occur. If your child refuses to drink, offer small amounts often. For young children, use an oral syringe and give 1 teaspoon every 10 minutes for 1 hour. If you are concernedabout your child???s nutrition, offer Bowen Instant Breakfast or PediaSure. Fever: A low-grade fever commonly occurs for several days after surgery. If temperature reaches 102??F, please contact the office; otherwise, continue to encourage oral intake and administer pain medication. Activity: Rest in bed or on the couch is recommended for several days after surgery. Activity may be increased slowly, with a return to school after your child is eating well, no longer using narcotic pain medication, and sleeping through the night. Travel away from home is not recommended for 2 weeks. Bleeding: With the exception of small specks of blood from the nose or in the saliva, bright red blood should not be seen. If such bleeding occurs, contact the office immediately or take your child to the emergency room. DO NOT USE aspirin for 2 weeks before or after surgery as it may cause bleeding. Breathing: The parent may notice abnormal snoring and mouth breathing due to swelling in the throat. Breathing should return to normal when swelling subsides, 10-14 days after surgery. Scabs: A scab will form where the tonsils and adenoids were removed. These scabs are thick, white, smell awful, and cause bad breath. Most scabs fall off in small pieces 5 to 10 days after surgery and are swallowed. Voice: The voice may become clearer and of higher pitch after surgery. It may also have a ???nasal?? quality that should improve within several weeks after surgery. Contact Information: The Otolaryngology nurse can be reached at and can answer any questions you may have in the post-operative period. The [facility] component prep operator can be reached at . The following web page has helpful information regarding common pediatric ear, nose, and throat concerns: http://[email or web address].org/kidsent. Follow-up: A post-operative visit is not required unless you or your surgeon requested one. If you have concerns or questions and would like to schedule a follow-up appointment, please contact the Otolaryngology clinic at and we will arrange one for you. documented in this encounter Medications at Time of Discharge Medication Sig Dispensed Refills Start Date End Date ibuprofen (ADVIL;MOTRIN) 100 mg/5 mL Suspension Take 20 mLs by mouth every 6 hours as needed for Pain. Alternate ibuprofen (advil, motrin) with acetaminophen (tylenol) products every 3 hrs to get each every 6 hr 12/23/2014 Multivitamins Tablet, Chewable Take 3 tablets by mouth every morning. ASCORBATE CALCIUM (VITAMIN C ORAL) Take 2 tablets by mouth every morning. Melatonin 1 mg Tablet Take by mouth every evening. CLONIDINE HCL ORAL Take 0.5 mg by mouth every evening. HYDROcodone-acetamino phen 7.5-325 mg/15 mL Solution Take 10 mLs by mouth every 6 hours as needed for Pain. 0.125 mg/kg/dose of hydrocodone every 4-6 hrs for pain 300 mL 0 12/23/2014 10/12/2020 documented as of this encounter Progress Notes * Jocelyne Garcia RN - 12/23/2014 10:36 AM EST Went over discharge instructions with pt and parents, understanding voiced. Pt is aware of times she can get motrin and lortab again. Pt is alert and oriented, VSS, respirations regular. Pt escorted out of facility via wheelchair with parents, ride home by parents in private vehicle. documented in this encounter H&P Notes * Francoise Ford MD - 12/23/2014 8:24 AM EST 24-Hour Pre-Operative H&P Update Patient was seen in the Pre-Operative Area today. I have reviewed, and agree with, the clinical history, physical examination findings, impression, and plan, as detailed in the original H&P Note. No new clinically-significant changes to the patient's health. Patient is ready to proceed with theplanned surgical procedure. Francoise Ford MD PhD Pediatric Otolaryngology [facility] [place], [place] [address] Office Source Note - Francoise Ford MD - 12/22/2014 7:54 PM EST Pediatric Otolaryngology Consultation Note Date of Visit: 11/02/2014 Location of Visit: Otolaryngology Clinic, [facility] Patient: Parul Solano ([id number]; 2005) Primary Care Provider: ASHLEY WOLF APRN [...] (obstructive sleep apnea) 327.23 Past Medical History: Past Medical History No past medical history on file. Past Surgical History: Past Surgical History No past surgical history on file. history: no complication Prior Hospitalizations: no Bleeding history: no Medications: Active Medications Outpatient Prescriptions Marked as Taking for the 11/02/14 encounter (Office Visit) with Darya Ford MD Medication Sig Dispense Refill ??? Multivitamins Tablet, Chewable Take 3 tablets by mouth every morning. ??? ASCORBATE CALCIUM (VITAMIN C ORAL) Take 2 tablets by mouth every morning. ??? Melatonin 1 mg Tablet Take by mouth every evening. ??? CLONIDINE HCL ORAL Take 0.5 mg by mouth every evening. No Facility-Administered Medications for the 11/02/14 encounter (Office Visit) with Francoise Ford MD. Allergies: Review of patient's allergies indicates no known allergies. Social History: Lives [place] [place] [facility] [address], with dad, step-mom, 2 brothers, 1 sister, which is 30 min away. Daycare/School: 6th grade. Secondhand smoke exposure: yes. Pets: dog. Immunizations UTD. Family History: Family History Family History Problem Relation Age of Onset [...] patient and family haveany concerns or problems. * Francoise Ford MD - 12/22/2014 7:54 PM EST Pediatric Otolaryngology Consultation Note Date of Visit: 11/02/2014 Location of Visit: Otolaryngology Clinic, [facility] Patient: Parul Solano ([id number]; 2005) Primary Care Provider: ASHLEY WOLF APRN [...] (obstructive sleep apnea) 327.23 Past Medical History: Past Medical History No past medical history on file. Past Surgical History: Past Surgical History No past surgical history on file. history: no complication Prior Hospitalizations: no Bleeding history: no Medications: Active Medications Outpatient Prescriptions Marked as Taking for the 11/02/14 encounter (Office Visit) with Darya Ford MD Medication Sig Dispense Refill ??? Multivitamins Tablet, Chewable Take 3 tablets by mouth every morning. ??? ASCORBATE CALCIUM (VITAMIN C ORAL) Take 2 tablets by mouth every morning. ??? Melatonin 1 mg Tablet Take by mouth every evening. ??? CLONIDINE HCL ORAL Take 0.5 mg by mouth every evening. No Facility-Administered Medications for the 11/02/14 encounter (Office Visit) with Francoise Ford MD. Allergies: Review of patient's allergies indicates no known allergies. Social History: Lives in [facility] [address], with dad, step-mom, 2 brothers, 1 sister, which is 30 min away. Daycare/School: 6th grade. Secondhand smoke exposure: yes. Pets: dog. Immunizations UTD. Family History: Family History Family History Problem Relation Age of Onset [...] patient and family haveany concerns or problems. documented in this encounter Miscellaneous Notes * Op Note - Francoise Ford MD - 12/23/2014 9:21 AM EST [facility] Operative Note Patient Name: Parul Solano : [id number] MR#: [id number] Case Date: 12/23/2014 Surgeon: Surgeon(s) and Role: * Francoise Ford MD - Primary * Pilar Mac MD - Resident-Surgeon Cricket Preoperative diagnosis: tonsil and adenoid hypertrophy Postoperative diagnosis: tonsil and adenoid hypertrophy Procedure(s): TONSILLECTOMY AND ADENOIDECTOMY; UNDER AGE 12 Anesthesia: General Estimated Blood Loss: * No values recorded between 12/23/2014 8:53 AM and 12/23/2014 9:18 AM * Specimens removed during surgery: bilateral tonsils Drains: none Surgical Closure: Other Than Primary Closure - deep and superficial layers are left completely openduring original surgery Disposition: awakened from anesthesia, extubated and taken to the recovery room in a stable condition, having suffered no apparent untoward event. Condition: doing well without problems (Please see the Surgical Encounter Summary for any Implant and Specimen details pertinent to this patient.) HPI/Surgical Indications: Parul is a 9 y.o. female who presents with removal of tonsils. The patient [...] father had not noticed pauses or gasping. He has noticed her waking herself up from the snoring.No difficulty with swallowing or eating. She has [...] which revealed AHI 5.9, O2 jean-paul 87%. Procedure Description: Findings: normal uvula and palate 2+ adenoids, with thick mucous in nasopharynx 3+ tonsils R glossopharyngeal nerve not visualized, L glossopharyngeal nerve not visualized Details: After informed consent was obtained, the patient was brought to the operating room and placed in a supine position. After induction of general anesthesia, the patient was intubated without difficulty. A time out was called and the patient, procedure, and site were confirmed. The operating table wasturned 90 degrees. A McIvor mouth gag was placed in the oral cavity to retract the tongue. This was suspended from a Branham stand. A suction catheter was passed through the right nostril to retract thesoft palate. First the adenoidectomy was performed using the suction electrocautery. Next, the right then the left tonsil were removed in a similar fashion. The tonsil was grasped with toothed forceps. The tonsil was removed in a superior to inferior fashion using the needle point electrocautery. Hemostasis was achieved using the suction electrocautery. The oral cavity, oropharynx, and nasopharynx were irrigated with sterile saline. The adenoid and tonsil beds were hemostatic at the end of the case. The McIvor and catheter were removed. The patient was awaken and extubated in the operating room and taken to the recovery room in stable condition. Disposition: When the patient meets criteria, the patient will be discharged to home. If the patient has any respiratory issues, poor pain control or PO intake, she will be admitted to the pediatric floor for airway monitoring and IV hydration and medications. Discharge medications include acetaminophen with hyd rocodone/oxycodone pain medications. If the patient has difficulty with hydrocodone/oxycodone, I advised the parents to try plain acetaminophen. If the patient needs additional analgesics, the parents may use ibuprofen per written instructions in addition to acetaminophen. The patient will follow up in ENT clinic in 4-6 weeks if the patient has any problems or concerns. Attestation: Case Date: 12/23/2014 I was present and I participated during the entire procedure (does not need to include opening and closing). Francoise Ford MD 12/23/2014 documented in this encounter Plan of Treatment Not on file documented as of this encounter Procedures Procedure Name Priority Date/Time Associated Diagnosis Comments SURGICAL PATHOLOGY REPORT Routine 12/23/2014 9:20 AM EST SPECIMEN TO PATHOLOGY Routine 12/23/2014 9:11 AM EST TONSILLECTOMY AND ADENOIDECTOMY; UNDER AGE 12 (WRVU 4.22) 12/23/2014 8:39 AM EST tonsil and adenoid hypertrophy documented in this encounter Results * Surgical Pathology Report (12/23/2014 9:20 AM EST) Final Diagnosis ? [facility] ? Provider: ?? FRANCOISE FORD ?Pt. Name: ?? PARUL SOLANO ? Acc #: ?[id number] ?Pt. ? Col Date: ?? 12/23/2014 ? /Sex: ?2005,(9 years),Female ? Rec Date: ?? 12/23/2014 ? LOC: ?SDP ? SURGICAL PATHOLOGY ? ---Pathologic Diagnosis--- ? Hyperplastic tonsillar tissue, right and left. ?Gross surgical pathology examination. ? CR-0 ? 12/23/14 ? SNS ? 12/24/14 Verified by: ? Jami PRIETO, Anisha Wray ? Pathologist ? (Electronic Signature) ? The attending pathologist whose signature appears on this report has ? reviewed all diagnostic slides and has edited the gross and/or ? microscopic portion of the report in rendering the final pathologic ? diagnosis. ? ---Microscopic Description--- ? Slides reviewed, microscopic description not recorded. ? ---Gross Description--- ? A -Labeled/Fixativ e: Right and left tonsils, fresh. ? Quantity/Size: Two, averaging 3.0 x 2.0 x 1.7 cm. ? Tissue Description: Nava-pink, rubbery, focally hemorrhagic tonsils. Cut ? surfaces are pink with a crypt-like architecture. ? Sections/Process ing: No sections are submitted. ??sns ? ---Clinical Information--- ? Specimen Submitted: ? A - Right and left tonsils ? Clinical History: ? Tonsil and adenoid hypertrophy ? Clinical Diagnosis: ? Same 12/24/2014 7:11 AM EST [facility] BILATERAL PALATINE TONSILS / Unknown 12/23/2014 9:20 AM EST 12/23/2014 9:20 AM EST Francoise Ford MD PATHOLOGY/CYTOLOGY O [place] Performing Organization Address [facility]/ZIP Co de Phone Number HANNA MONTEIRO [facility] [place] [address] * Specimen to Pathology (surgical or derm) (12/23/2014 9:11 AM EST) AP Specimen 12/23/2014 9:11 AM EST 12/23/2014 9:11 AM EST Narrative HANNA MONTEIRO - 12/23/2014 9:11 AM EST Specimen requisition ordered. ??Separate Pathology report to follow Francoise Ford MD PATHOLOGY/CYTOLOGY O [place] Performing Organization Address [facility] Co de Phone Number HANNA MONTEIRO documented in this encounter Visit Diagnoses Not on filedocumented in this encounter Administered Medications Inactive Administered Medications - up to 3 most recent administrations Medication Order MAR Action Action Date Dose Rate Site HYDROcodone-acetaminophen 7.5-325 mg/15 mL oral liquid 5 mg 5 mg (0.108 mg/kg/dose), Oral, ONCE PRN, 1 dose, Starting on Sun12/23/14 at 0831, Until Sun12/23/14 at 0952, Pain, Dosed in mg of hydrocodone. Maximum dose of acetaminophen is 90 mg/kg/day to a max of 4000 mg from all sources in 24 hours. Acetaminophen content is 21.7 mg/mL., Routine Given 12/23/2014 9:52 AM EST 5 mg documented in this encounter Active and Recently Administered Medications Times are shown in EST. PRN Medication Order 12/21/2014 12/22/2014 12/23/2014 HYDROcodone-acetaminophen 7.5-325 mg/15 mL oral liquid 5 mg (COMPLETED) 5 mg (0.108 mg/kg/dose), Oral, ONCE PRN, 1 dose, Starting on Sun12/23/14 at 0831, Until Sun12/23/14 at 0952, Pain, Dosed in mg of hydrocodone. Maximum dose of acetaminophen is 90 mg/kg/day to a max of 4000 mg from all sources in 24 hours. Acetaminophen content is 21.7 mg/mL., Routine 0952 (Given - [facility] er: Jocelyne Garcia RN) documented in this encounter Care Teams Ophthalmic Assistant Relationship Specialty Start Date End Date Ashley Wolf, VAC PRESS OPERATOR PCP - General 05/20/14 08/13/20 documented as of this encounter
--- OUTSIDE RECORDS SUMMARY | 2024-06-13 02:04 | XMS_ITS | Encounter Summary ---
[place] [address] Care Team Providers Care Office Rental Clerk Name Role Phone Lizzette Wolf APRN Primary Care Provider Unav ailable Reason for Visit * Reason Onset Date Comments Triage 08/04/2020 Encounter Details Date Type Department Care Team ([facility] st Contact Info) Description 08/04/2020 [place] [address] Rose Costa APRN [address] [place] [address] Triage Social History Tobacco Use Types Packs/Day Years Used Date Smoking Tobacco: Passive Smo ke Exposure - Never Smoker Comments:Biological mother s mokes outside and in car. Sex and Gender Information Value Date Recorded Sex Assigned at Not on file Gender Identity Not on file Sexual Orientation Not on file documented as of this encounter Miscellaneous Notes * Telephone Encounter - Rose Fish, RN - 08/04/2020 9:50 AM EDT High Threat Infection Intake Questions Nurse Triage Assessment Review of Pertinent Systems & Pertinent positive/negative findings (e.g. Skin, Neurological, Respiratory, Cardiac, GI, , and Musculoskeletal): Cough, nausea, fatigue, SOB When did your symptoms start? 10/3 People with any of these acute symptoms may have COVID-19: Detail of symptoms: Cough: Yes, productive: no, purulent sputum: no, blood no Shortness of Breath: Yes Fever: No Check all that apply: [x] Fatigue [] Muscle or Body Aches [] Headache [] New loss of taste or smell [] Sore Throat [] Congestion or runny nose [x] Nausea or vomiting [] Diarrhea Pediatrics: [] Retractions/belly breathing [] Skin/Lip color changes [] Wheezing [] Stridor [] Eating/Drinking normally [] Voiding normally Employee or household member at [facility]? No If yes, please state whether employee or household member: no Have you been in contact with anyone suspected or confirmed to have COVID-19 in the past 14 days? No Any travel in the past 14 days? No If so, Where: no Date of departure: no Date of Return: no TESTING CRITERIA: Asymptomatic patients: Criteria for testing- member of or healthcare worker at a [facility], [facility] facility or care home care facility (LTCF), and all first responders. Pre procedural patients requiring admission or determined high risk by provider. * patient or employee returning to college/boarding school, airline travel requirement, or camp participation. Symptomatic Patients: People with COVID-19 have had a wide range of symptoms reported - ranging from mild symptoms to severe illness. Symptoms may appear 2-14 days after exposure to the virus. Consider testing if these symptoms cannot otherwise be explained. Plan/Disposition: If ordering test, ordering PCP: Dee Dee Kaur MD Date, time and location of test: 08/04 [place] 1110 If sending for testing ask the following: First test for Covid-19: yes If not first covid test: date of previous test, type of test (molecular, antigen, antibody, or unknown), and result of previous test: Employed in healthcare: no Symptomatic as defined by CDC: yes Resides in congregate care setting: no : no Name of Triage Guideline/Protocol used: Utilized High Threat Infection Screening for Covid 19 Hotline as directed by incident command and infectious disease based on CDC guidelines, [place] Department of Health and Human Services, and [facility] policy. Patient/Responsible republican voices an understanding of advice: yes Patient/Responsible republican intends to comply with actions/disposition: yes All Patients - If YES to exposure and NO to symptoms - Proceed with Quarantine Instructions If NO to symptoms/exposure - Proceed with Nurse Triage - Proceed with appropriate instructions based on Triage protocol If YES to symptoms - Proceed with testing protocol - Proceed with Isolation instructions Important instructions for patient when scheduling for testing: -No dogs allowed in car unless in kennel or behind gated section, due to risk to the clinical staff. -Follow quarantine/isolation instructions (pamphlets available to hand out at testing location) Education/Instructions: Isolation Instructions: 1. Stay home from work, school, and away from other public places. If you must go out, avoid using any kind of public transportation, ridesharing, or taxis. 2. Monitor your symptoms carefully. If your symptoms get worse, call your healthcare provider immediately. 3. Get rest and stay hydrated. 4. If you have a medical appointment, call the healthcare provider ahead of time and tell them thatyou have or may have COVID-19. 5. For medical emergencies, call 911 and notify the dispatch personnel that you have or may have COVID-19. 6. Cover your cough and sneezes. 7. Wash your hands often with soap and water for at least 20 seconds or clean your hands with an alcohol-based hand manufacturing controls engineer that contains at least 60% alcohol. 8. As much as possible, stay in a specific room and away from other people in your home. Also, you should use a separate bathroom, if available. If you need to be around other people in or outside ofthe home, wear a facemask. 9. Avoid sharing personal items with other people in your household, like dishes, towels, and bedding 10. Clean all surfaces that are touched often, like counters, tabletops, and doorknobs. Use household cleaning sprays or wipes according to the label instructions. 11. You can use acetaminophen or ibuprofen as directed for fever. Emergency Warning Signs: If you develop emergency warning signs for COVID-19 get medical attention immediately. Emergency warning signs include: ??? Difficulty breathing or shortness of breath ??? Persistent pain or pressure in the chest ??? New confusion or inability to arouse ??? Bluish lips or face This list is not all inclusive. Please consult your medical provider for any other symptoms that are severe or concerning. Helpful definitions Close contact is described as: Being within approximately 6 feet (2 meters) of a COVID-19 case for a prolonged period of time; close contact can occur while caring for, living with, visiting, or sharing healthcare waiting area or room with a COVID-19 case. OR Having direct Contact with infectious secretions of a COVID-19 case (e.g., being coughed on) Fever Definition: 100.0 F or higher Additional information: ??? Recommend CDC website for helpful information on self-care and quarantine at home o https://www.cdc.gov/ and choose more information on Covid-19 *May test at [facility] only. documented in this encounter Plan of Treatment Not on file documented as of this encounter Visit Diagnoses Not on filedocumented in this encounter Care Teams Office Rental Clerk Relationship Specialty Start Date End Date Lizzette Wolf APRN PCP - General 05/20/14 08/13/20 documented as of this encounter
--- OUTSIDE RECORDS SUMMARY | 2024-06-13 02:04 | XMS_ITS | Clinical Summary ---
Author Organization [facility] Address [address] [place] [address] Care Team Providers Care Sprinkling System Irrigator Name Role Phone Jayne Mercedes NP Primary Care Provider + Social History Tobacco Use Types Packs/Day Years Used Date Smoking Tobacco: Never Assessed Sex and Gender Information Value Date Recorded Sex Assigned at Not on file Gender Identity Not on file Sexual Orientation Not on file Plan of Treatment Health Maintenance Due Date Last Done Comments Hepatitis C Screen 2003 Hepatitis B Vaccine (1 of 3 - 19+ 3-dose series) 06/25 COVID-19 Vaccine ( - 2022-24 season) 2023 Care Teams Sprinkling System Irrigator Relationship Specialty Start Date End Date Jayne Mercedes NP [address] [address] PCP - General 05/28/19
--- OUTSIDE RECORDS SUMMARY | 2024-06-13 02:04 | XMS_ITS | Encounter Summary ---
Author Organization [facility] [place] [address] Care Team Providers Care Edger Operator Name Role Phone Arik Wolfi Kamala MCDONOUGH Primary Care Provider Unav ailable Reason for Visit * Reason Comments Rash * Consultation (Routine) - Closed Specialty Diagnoses / Procedures Referred By Shira wiseman Referred To Contact Dermatology Diagnoses RASH /IMPETIGO/ RESEPTAL CELLULITIS Keya Ruggiero MD [address] [place] [id number] [facility] [address] [place] [address] Referral ID Status Reason Start Date Expiration Date Visits Re quested Visits Authorized [id number] Closed 01/14/2018 01/14/2019 1 1 Encounter Details Date Type Department Care Team (Late st Contact Info) Description 01/14/2018 2:45 PM EDT Office Visit Dermatology at [facility] [address] [place] [phone] Nishi Buckner MD [facility] [address] [facility] [address] Impetigo; Atopic dermatitis, unspecified type Social History Tobacco Use Types Packs/Day Years Used Date Smoking Tobacco: Passive Smo ke Exposure - Never Smoker Comments:Biological mother s mokes outside and in car. Sex and Gender Information Value Date Recorded Sex Assigned at Not on file Gender Identity Not on file Sexual Orientation Not on file documented as of this encounter Progress Notes * Nishi Buckner S - 01/14/2018 2:45 PM EDT Images from the original note were not included. DERMATOLOGY - NEW PATIENT NOTE Date of service: 01/14/2018 Parul Solano : 2005, 12 y.o. Chief Complaint: Chief Complaint Patient presents with ??? Rash HPI: Parul Solano is a 12 y.o. female referred by Keya Ruggiero with the following concerns: Patient presents for a rash on the face. This started over a month ago with crusting and redness around the left eye. She had associated pain. Was treated with PO keflex with temporary improvement; however, the rash returned after she stopped the keflex. She was subsequently treated with bactrim x10 days (on day 8 currently) and mupirocin with minimal improvement. She has been seen by an search marketing coordinator, and they said there was no eye abnormality. The eye itself is painful, and itchy. Does not use eyedrops. Washes hair with Dove color care shampoo. She does dye her hair; last colored hair before . No nail swedish. Denies history of cold sores. Here today with step mom. Relevant Skin History: - Okay to leave detailed message with results? yes - Skin cancer (including type): no - Eczema Family History: Melanoma: no Relevant Social History: - goes to [employer] Lives with Dad and step mom Meds: Current Outpatient Prescriptions Medication Sig Dispense Refill ??? HYDROcodone-acetaminophen 7.5-325 mg/15 mL Solution Take 10 mLs by mouth every 6 hours as needed for Pain. 0.125 mg/kg/dose of hydrocodone every 4-6 hrs for pain 300 mL 0 ??? ibuprofen (ADVIL;MOTRIN) 100 mg/5 mL Suspension Take 20 mLs by mouth every 6 hours as needed for Pain. Alternate ibuprofen (advil, motrin) with acetaminophen (tylenol) products every 3 hrs to geteach every 6 hr ??? Multivitamins Tablet, Chewable Take 3 tablets by mouth every morning. ??? ASCORBATE CALCIUM (VITAMIN C ORAL) Take 2 tablets by mouth every morning. ??? Melatonin 1 mg Tablet Take by mouth every evening. ??? CLONIDINE HCL ORAL Take 0.5 mg by mouth every evening. No current facility-administered medications for this visit. Allergies: No Known Allergies Review of Systems: - General: Feels well. - Skin: No other skin concerns. Examination: - Constitutional: Patient was alert, well-appearing and in no noticeable distress. - Skin: Skin examination of the Face Diagnosis/Skin findings/Assessment/Plan: 1. Impetiginized eczematous dermatitis - bilateral cheeks extending to upper and lower eyelids, andforehead: well demarcated crusted and eroded, eczematous plaques, some areas with honey colored crusting. - Patient's condition is most consistent with impetiginized eczematous dermatitis. Considered an allergic contact dermatitis, though there are no clear triggering exposures. Lack of response to antibiotics is likely due to underlying eczematous dermatitis. No vesicles or punched-out erosions to suggest HSV - Patient is on Bactrim and not responding adequately to treatment - Wound culture obtained to r/o resistant organism - HSV PCR obtained - Rx: doxycycline 100 mg PO BID x10 days - Rx: Alclometasone ointment - Apply to itchy/affected areas twice daily for 2 weeks RTC: 3-4 weeks for f/u dermatitis The following photos were obtained with patient consent: Note initiated by MOISE MAE LPN. I performed the above scribed service and agree with the accuracy of the documentation in this encounter. Reviewed and signed by NISHI BUCKNER MD Resident in Dermatology [facility] Patient seen in conjunction with staff business data analyst: Herrera Acuña MD Section of Dermatology [facility] * Herrera Acuña III, MD - 01/14/2018 2:45 PM EDT I directly supervised Dr. Nishi Buckner during this office visit. Dr. Buckner presented the history and physical exam to me. I then saw and examined this patient with Dr. Buckner. We reviewed the history and pertinent details and I confirmed the physical findings. I agree with the details of the history and physical exam as documented in Dr. Buckner's note. HERRERA ACUÑA III, MD Staff Physician documented in this encounter Plan of Treatment Not on file documented as of this encounter Procedures Procedure Name Priority Date/Time Associated Diagnosis Comments HSV 1 AND 2 PCR Routine 01/14/2018 5:29 PM EDT Impetigo Atopic dermatitis, unspecified type SKIN/SUP WOUND CULTURE Routine 01/14/2018 5:29 PM EDT Impetigo Atopic dermatitis, unspecified type documented in this encounter Results * HSV 1 and 2 PCR (01/14/2018 5:29 PM EDT) HSV-1 PCR Not Detected Not Detected [facility] HSV-2 PCR Not Detected Not Detected [facility] HSV Source Lesion [facility] Comment: The only FDA approved specimen types for this assay are CSF and genital lesions. Lesion specimen (specimen) 01/14/2018 5:29 PM EDT 01/14/2018 6:27 PM EDT Narrative Resulting Agency Comment Spec In Lab Herrera Acuña III, MD MICROBIOLOGY - GENERAL ORDERABLES [facility] [place] [address] * Skin/Superficial Wound Culture Face (01/14/2018 5:29 PM EDT) Skin/Superfic ial Wound Culture No growth [facility] Gram Stain No WBC's seen. No microorganisms seen. [facility] Swab from superficial wound (specimen) FACE STRUCTURE / Unknown 01/14/2018 5:29 PM EDT 01/14/2018 6:25 PM EDT Narrative Resulting Agency Comment Spec In Lab Herrera Acuña III, MD MICROBIOLOGY - GENERAL ORDERABLES Performing Organization Address City/State/[facility] Co de Phone Number [facility] [place] [address] documented in this encounter Visit Diagnoses Diagnosis Impetigo Atopic dermatitis, unspecified type documented in this encounter Care Teams Edger Operator Relationship Specialty Start Date End Date Lizzette Wolf, ORTHOPEDIC SHOES SALESPERSON PCP - General 05/20/14 08/13/20 documented as of this encounter
--- OUTSIDE RECORDS SUMMARY | 2024-06-13 02:04 | XMS_ITS | Encounter Summary ---
[place] [address] Care Team Providers Care Amusement Machine Mechanic Name Role Phone Lizzette Wolf APRN Primary Care Provider Unav ailable Encounter Details Date Type Department Care Team (Late st Contact Info) Description 08/04/2020 11:10 AM EDT [place] [address] COVID-19 ruled out Social History Tobacco Use Types Packs/Day Years [...] Procedure Name Priority Date/Time Associated Diagnosis Comments COVID-19 PCR STAT 08/04/2020 1:08 PM EDT COVID-19 ruled out documented in this encounter Results * COVID-19 PCR (08/04/2020 1:08 PM EDT) SARS-CoV-2 RNA Not Detected Not Detected [facility] Comment: This result should be interpreted in combination with the clinical observations, patient history and epidemiological information in making a final diagnosis. For testing of asymptomatic individuals, assay performance characteristics and clinical utility have not been evaluated. Testing for SARS-CoV-2 (Severe acute respiratory syndrome coronavirus 2, formerly known as 2019 novel coronavirus or 2019-nCoV) to aid in the diagnosis of COVID-19 is performed using the [employer] Real[employer] SARS-CoV-2 Assay as authorized by the FDA Emergency Use Authorization (EUA). This EUA assay is intended for In-vitro Diagnostic (IVD) use with respiratory specimens such as nasopharyngeal swabs collected from individuals during the acute phase of infection. This assay is performed based on the instructions for use provided by [employer] and additional guidance provided by CDC and FDA. Testing is performed in the [facility] within the Department of Pathology and Laboratory Medicine at [facility], certified under the Clinical Laboratory Improvement Amendments of 1988 (CLIA), 42 U.S.C. 263a, to perform high complexity tests. Assay performance has been verified according to clinical laboratory regulatory requirements for use with specimens collected from individuals suspected of COVID-19. Test results are provided above. A result of ? Not Detected? indicates that the viral RNA target is not present above the limit of detection, but does not preclude SARS-CoV-2 infection. False negative results may occur if a specimen is improperly collected, transported or handled; if amplification inhibitors are present; or if inadequate numbers of viral particles are present in the specimen. When a diagnostic test is negative, the possibility of a false negative result should be considered in the context of a patient? s recent exposures and the presence of clinical signs and symptoms consistent with COVID-19. A result of ? Detected? indicates that RNA from SARS-CoV-2 was detected and the patient is infected. As required or requested by public health authorities, positive specimens may be sent for additional testing. Positive and negative predictive values for this test are highly dependent on disease prevalence. A result of ? Invalid? indicates that neither the viral RNA targets nor the internal control target was detected. An invalid result suggests the presence of inhibitors. Recollection and re-testing is recommended in the case of an invalid result. CDC COVID-19 criteria for testing on human specimens and clinical management guidance information are available at the CDC Coronavirus Disease 2019 (COVID-19) webpage under ? Information for Healthcare Professionals? (https://www.cdc.gov/coronavirus/2019-ncov/hcp/index.html) Additional information about this and other EUA tests can be found in provider and patient fact sheets at the following FDA website: https://www.fda.gov/medical-devices/ioxgtmtovxj-gwjlbya-3399-szphr-75-amqusvdoz- use-a vuzzigjvzptuo-rkllvvr-desmers/qychp-waaovjxilui-wxed SARS-CoV-2 RNA Source HEMSTITCHING MACHINE OPERATOR Swab [facility] Nasopharyngeal swab (specimen) 08/04/2020 1:08 PM EDT 08/04/2020 1:08 PM EDT Comment:Symptoms->Fever / Re spiratory Symptoms Narrative Resulting Agency Comment Spec In Lab Dee Dee Kaur DO MOLECULAR ORDERABLES [facility] [place] [address] documented in this encounter Visit Diagnoses Diagnosis COVID-19 ruled out documented in this encounter Care Teams Amusement Machine Mechanic Relationship Specialty Start Date End Date Lizzette Wolf APRN PCP - General 05/20/14 08/13/20 documented as of this encounter
--- OUTSIDE RECORDS SUMMARY | 2024-06-13 02:04 | XMS_ITS | Referral Summary ---
Author Organization [facility] Address [address] [place] [address] Care Team Providers Care A P Manager Name Role Phone Jayne Mercedes OPERATIONS RESEARCH SCIENTIST Primary Care Provider + Social History Tobacco Use Types Packs/Day Years Used Date Smoking Tobacco: Never Assessed Sex and Gender Information Value Date Recorded Sex Assigned at Not on file Gender Identity Not on file Sexual Orientation Not on file Plan of Treatment Not on file Care Teams A P Manager Relationship Specialty Start Date End Date Jayne Mercedes NP [address] [address] PCP - General 05/28/19
--- OUTSIDE RECORDS SUMMARY | 2024-06-13 02:04 | XMS_ITS | Encounter Summary ---
Author Organization [facility] Address [facility] [place] [address] Care Team Providers Care Shank Maker Name Role Phone Charlie Cha MD Primary Care Provider [phone] Encounter Details Date Type Department Care Team (Late st Contact Info) Description 10/12/2020 Notes Only Care Management [facility] [place] [id number] Rox Garcia, LINDA Social History Tobacco Use Types Packs/Day Years Used Date Smoking Tobacco: Passive Smo ke Exposure - Never Smoker Comments:Biological mother s mokes outside and in car. Sex and Gender Information Value Date Recorded Sex Assigned at Not on file Gender Identity Not on file Sexual Orientation Not on file documented as of this encounter Progress Notes * Rox Garcia MSW - 10/12/2020 3:13 PM EST Office of Care Management/ Outpatient Social Work Note Patient:15yo FTM accompanied by Fop. Relevant Information:First appt in Ped transgender Clinic. Introduced myself and role. [place] and family moved to [place] of [facility] 6 years ago. They relocated to current location from [place], [place] Pt attends [employer], about 10 minutes away. Pt aware of [facility] through agood friend, Jose Miguel, who he described as the person to go to when looking for resources. Gave them a copy of lists for Therapists in their area and in nearby [place]. Pt aware it could take a while to find a good fit. Fop admitted he would like someone who he and other family could also see. I suggested they ask about this option when ringing for Pt. I also noted that [facility] might havesomething to offer family/parents and that the peer support model could be very helpful. Told them about the Clinic group not currently running due to Covid-19. Assessment:Pt was warm and spontaneous with good eye contact. His social skills and communication skills were very good. He presented with a quiet confidence and seemed pleased to be at appt. Plan:Gave them my card. Nothing else at present. Invited them to contact me as needs may arise. Seeat a future appt for a check-in. LINDA Stanford Counter Server, Care Management Pediatric Audiology, Endocrinology, Nephrology [phone] documented in this encounter Plan of Treatment Not on file documented as of this encounter Visit Diagnoses Not on filedocumented in this encounter Care Teams Shank Maker Relationship Specialty Start Date End Date Charlie Cha MD [address] [place] [address] [place] [id number] PCP - General Pediatrics 08/14/20 documented as of this encounter
--- OUTSIDE RECORDS SUMMARY | 2024-06-13 02:04 | XMS_ITS | Encounter Summary ---
Author Organization [facility] Address [facility] [place] [address] Care Team Providers Care Finish Grinder Name Role Phone Lizzette Wolf APRN Primary Care Provider Unav ailable Reason for Referral * Consultation (Routine) - Closed Specialty Diagnoses / Procedures Referred By Shira wiseman Referred To Contact Sleep Center Diagnoses Snoring disorder Esther Delcid V [facility] [place] [address] Esther Delcid V [facility] [place] [address] Referral ID Status Reason Start Date Expiration Date V isits Requested Visits Authorized [id number] Closed Test Only 08/01/2014 01/28/2015 1 1 Encounter Details Date Type Department Care Team (Late st Contact Info) Description 08/01/2014 Orders Only Sleep Center at [facility] [address] [place] [address] Esther Delcid V [facility] [place] [address] Snoring disorder (Primary Dx) Social History Tobacco Use Types Packs/Day Years Used Date Smoking Tobacco: Never Assessed Sex and Gender Information Value Date Recorded Sex Assigned at Not on file Gender Identity Not on file Sexual Orientation Not on file documented as of this encounter Progress Notes * Esther Delcid DO - 08/01/2014 5:27 PM EDT Polysomnogram Order Form Room # Technologist Assignment: To be read by on PSG Patient Information Date of study: : 2005 Name: Parul Solano Height: 152 cm Weight: 43.6 kg 9 y.o. female Normal sleep hours: 8 pm- 7 am Arrival Time: Physical/Mobility Limitations: No Cognitive Limitations: No Requires Male Tech: No Requires Female Tech: No Requires 1:1 Care: No ( I do not think the patient would require 1:1 care ) Requires Parent/Caregiver: Yes ( mother or father will stay with Parul overnight) Using Home Oxygen: No (if Yes, ? lpm, nighttime only or continuous) At home sleeps in: Bed Requires side rails PSG Indications: high risk for HEATHER with c/o non-restorative nocturnal sleep, daytime symptoms of inattentiveness ,anxiety and problems with mood and behavior, f headache and findings on physical exam( tonsillar hypertrophy 3+) Other Medical Conditions: anxiety/depression PSG Orders Type of study:PSG pediatric- diagnostic Additional data required: TCO2 Special instructions: no Normal sleep hours (for MSLT): n/a documented in this encounter Plan of Treatment Scheduled Referrals Name Type Priority Associated Diagnoses Orde r Schedule Referral to Sleep Disorders Center Outpatient Referral Routine Snoring disorder Ordered: 08/01/2014 documented as of this encounter Visit Diagnoses Diagnosis Snoring disorder- Primary Other dyspnea and respiratory abnormality documented in this encounter Care Teams Finish Grinder Relationship Specialty Start Date End Date Lizzette Wolf APRN PCP - General 05/20/14 08/13/20 documented as of this encounter
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
--- OUTSIDE RECORDS SUMMARY | 2024-06-13 02:04 | XMS_ITS | Encounter Summary ---
Author Organization [facility] [place] [place] [address] Care Team Providers Care Rheostat Assembler Name Role Phone Lizzette Wolf APRN Primary Care Provider Unav ailable Encounter Details Date Type Department Care Team (Late st Contact Info) Description 11/03/2014 Telephone [place] [phone] Hoda Moncada, RN Social History Tobacco Use [...] Encounter - Hoda Moncada RN - 11/03/2014 11:21 AM EST Message left for parents to call to go over meds to hold prior to upcoming surgery. documented in this encounter Plan of Treatment Not on file documented as of this encounter Visit Diagnoses Not on filedocumented in this encounter Care Teams Rheostat Assembler Relationship Specialty Start Date End Date Lizzette Wolf APRN PCP - General 05/20/14 08/13/20 documented as of this encounter
--- OUTSIDE RECORDS SUMMARY | 2024-06-13 02:04 | XMS_ITS | Encounter Summary ---
Author Organization [facility] Address [address] [place] [address] Care Team Providers Care Licensed Massage Therapist Name Role Phone Jayne Mercedes BEHAVIOR INTERVENTIONIST Primary Care Provider + Encounter Details Date Type Department Care Team (Late st Contact Info) Description 11/29/2020 Lab Requisition [facility] Pathology & Laboratory Medicine - [address] [id number] Outr Resulting Lab, Provider Social History Tobacco [...] Procedure Name Priority Date/Time Associated Diagnosis Comments ZZCOVID-19 TEST [facility] PCR Today 11/29/2020 10:23 EST COVID-19 TESTING Routine 11/29/2020 10:2 3 EST documented in this encounter Results * COVID-19 TEST [facility] PCR (11/29/2020 10:23 EST) Swab ENTIRE NASOPHARYNX / Unknown 11/29/2020 10:23 EST 11/29/2020 17:01 EST Provider Outr Resulting Lab MICROBIOLOGY - GENERAL ORDERABLES [facility] [address] [place] [address] * COVID-19 TESTING (11/29/2020 10:23 EST) COVID-19 rt-PCR Result Negative Negative 11/30/2020 12:29 EST [facility] Comment: This test has not been FDA cleared or approved. This test has been authorized by FDA under an EUA for use by authorized laboratories. This test has been authorized only for detection of nucleic acid from 2019-nCoV, not for any other viruses or pathogens. This test is only authorized for the duration of the declaration that circumstances exist justifying the authorization of emergency use of in vitro diagnostic tests for detection and/or diagnosis of 2019-nCoV under section 564(b)(1) of Act, 21 U.S.C ?? 360bbb-3(b) (1), unless the authorization is terminated or revoked sooner. Negative results do not preclude 2019-nCoV infection and should not be used as the sole basis for treatment or other patient management decisions. Negative results must be combined with clinical observations, patient history, and epidemiological information. This test was developed and its performance characteristics determined by [facility]. It has not been cleared or approved by the US Food and Drug Administration. FDA does not require this test to go through premarket FDA review. This test is used for clinical purposes. It should not be regarded as investigational or for research. This laboratory is certified under the Clinical Laboratory Improvement Amendments (CLIA) as qualified to perform high complexity clinical laboratory testing. This test is based on the CDC COVID-19 Emergency Use Authorization (EUA) assay, with minor modification as defined by the FDA Performed on the Take the Interviewo 7 Flex RT-PCR System. Performing Lab [facility] 11/30/2020 12:29 EST [facility] Swab 11/29/2020 10:2 3 EST 11/29/2020 17:01 EST Provider Outr Resulting Lab MICROBIOLOGY - GENERAL ORDERABLES [facility] [address] [place] [address] documented in this encounter Visit Diagnoses Not on filedocumented in this encounter Care Teams Licensed Massage Therapist Relationship Specialty Start Date End Date Jayne Mercedes NP [address] [place] [address] PCP - General 05/28/19 documented as of this encounter
--- OUTSIDE RECORDS SUMMARY | 2024-06-13 02:04 | XMS_ITS | Encounter Summary ---
Author Organization [facility] Address [facility] [place] [address] Care Team Providers Care Customer Service Driver Name Role Phone Luciano Ashley Kamala MCDONOUGH Primary Care Provider Unav ailable Encounter Details Date Type Department Care Team (Latest Contact Info) Description 12/23/2014 8:05 AM EST - 12/23/2014 10:36 AM EST Hospital En[place] [address] Francoise Ford MD [facility] [place] [address] Snoring; HEATHER (obstructive sleep apnea); Tonsillar and adenoid hypertrophy Discharge Disposition: Home Social History Tobacco Use [...] Taken Comments Blood Pressure - - Pulse 87 12/23/2014 10:15 AM EST Temperature 36.9 ??C (98.4 ??F) 12/23/2014 [...] soreness, which usually goes away in 12-24hours. [facility] - Information Same Day Surgery * Patient [...] acetaminophen-narcotic combination medication (Lortab or Roxicet) with ryhy-hgy-duamgga ibuprofen (Motrin, Advil) in a staggered fashion. Each medicine, when used alone, is given every 6 hours; however,if you stagger the dosing and go kauq-bgx-hnfwr between the two medications, you can provide [...] you are concernedabout your child???s nutrition, offer Guion Instant Breakfast or PediaSure. Fever: A low-grade [...] may have in the post-operative period. [facility] cutting and printing machine operator can be reached at . The following web page has helpful information regarding common pediatric ear, nose, and throat concerns: http://www.entnet.org/kidsent. Follow-up: A post-operative visit is not required unless you or your surgeon requested one. If you have concerns or questions and would like to schedule a follow-up appointment, please contact the Otolaryngology clinic at [phone] and we will arrange one for you. [...] Francoise Ford MD PhD Pediatric Otolaryngology [facility] [place], [place] [address] Office Source Note - Francoise Ford MD - 12/22/2014 7:54 PM EST Pediatric Otolaryngology Consultation Note Date of Visit: 11/02/2014 Location of Visit: Otolaryngology Clinic, [facility] Patient: Parul Solano ([id number]; 2005) Primary Care Provider: ASHLEY WOLF APRN [...] no known allergies. Social History: Lives in [place] [phone], with dad, step-mom, 2 brothers, 1 sister, [...] Visit: 11/02/2014 Location of Visit: Otolaryngology Clinic, [facility] Patient: Parul Solano ([id number]; 2005) Primary Care Provider: ASHLEY WOLF APRN [...] no known allergies. Social History: Lives in [place] [phone], with dad, step-mom, 2 brothers, 1 sister, [...] Ford MD - 12/23/2014 9:[address] [facility] Operative Note Patient Name: Parul Solano : [id number] MR#: [id number] Case Date: 12/23/2014 Surgeon: Surgeon(s) and Role: [...] (12/23/2014 9:20 AM EST) Final Diagnosis ? [facility] ? Provider: ?? FRANCOISE FORD ?Pt. Name: ?? DUNIA PARUL Swann ? Acc #: ?[id number] ?Pt. ? Col Date: ?? 12/23/2014 ? [...] Diagnosis: ? Same 12/24/2014 7:11 AM EST [facility] BILATERAL PALATINE TONSILS / Unknown 12/23/2014 9:20 AM EST 12/23/2014 9:20 AM EST Francoise Ford MD PATHOLOGY/CYTOLOGY O [place] Performing Organization Address [facility] Co de Phone Number HANNA MONTEIRO [facility] [place] [address] * Specimen to Pathology (surgical or derm) (12/23/2014 9:11 AM EST) AP Specimen 12/23/2014 9:11 AM EST 12/23/2014 9:11 AM EST Narrative HANNA MONTEIRO - 12/23/2014 9:11 AM EST Specimen requisition ordered. ??Separate Pathology report to follow Francoise Ford MD PATHOLOGY/CYTOLOGY O [place] Performing Organization Address [facility] Co de Phone Number HANNA GIOVANNICRISTIANE documented in this encounter Visit Diagnoses Diagnosis Snoring Other dyspnea and respiratory abnormality HEATHER (obstructive sleep apnea) Obstructive sleep apnea (adult) (pediatric) Tonsillar and adenoid hypertrophy Hypertrophy of tonsil with adenoids documented in this encounter Administered Medications Inactive Administered [...] on Sun12/23/14 at 0831, Until Sun12/23/14 at 09, Pain, Dosed in mg of hydrocodone. Maximum dose of acetaminophen is 90 mg/kg/day to a max of 4000 mg from all sources in 24 hours. Acetaminophen content is 21.7 mg/mL., Routine 951 (Given - Provid er: Jocelyne Garcia RN) documented in this encounter Care Teams Customer Service Driver Relationship Specialty Start Date End Date Ashley Wolf, DAIRY PRODUCTS MAKER PCP - General 05/20/14 08/13/20 documented as of this encounter
--- OUTSIDE RECORDS SUMMARY | 2024-06-13 02:04 | XMS_ITS | Encounter Summary ---
Author Organization [facility] [place] [address] Care Team Providers Care Brake Liner Name Role Phone Lizzette Wolf APRN Primary Care Provider Unav ailable Reason for Referral * Consultation (Routine) - Closed Specialty Diagnoses / Procedures Referred By Shira wiseman Referred To Contact Otolaryngology Diagnoses HEATHER (obstructive sleep apnea) Esther Delcid V [facility] [place] [address] [facility] [place] [address] [place] [phone] Referral ID Status Reason Start Date Expiration Date V isits Requested Visits Authorized [id number] Closed Specialty Service Requested 09/22/2014 03/21/2015 1 1 Encounter Details Date Type Department Care Team (Late st Contact Info) Description 09/22/2014 Orders Only Sleep Center at [facility] [address] [place] [address] Esther Delcid V [facility] [place] [address] HEATHER (obstructive sleep apnea) Social History Tobacco Use Types Packs/Day Years Used Date Smoking Tobacco: Never Assessed Sex and Gender Information Value Date Recorded Sex Assigned at Not on file Gender Identity Not on file Sexual Orientation Not on file documented as of this encounter Plan of Treatment Scheduled Referrals Name Type Priority Associated Diagnoses Orde r Schedule Referral to ENT Outpatient Referral Routine HEATHER (obstructive sleep apnea) Ordered: 09/22/2014 documented as of this encounter Visit Diagnoses Diagnosis HEATHER (obstructive sleep apnea) Obstructive sleep apnea (adult) (pediatric) documented in this encounter Care Teams Brake Liner Relationship Specialty Start Date End Date Lizzette Wolf, WAD LUBRICATOR PCP - General 05/20/14 08/13/20 documented as of this encounter
--- OUTSIDE RECORDS SUMMARY | 2024-06-13 02:04 | XMS_ITS | Encounter Summary ---
[place] [address] Care Team Providers Care Mail Weigher Name Role Phone Ashley Wolf APRN Primary Care Provider Unav ailable Encounter Details Date Type Department Care Team (Late st Contact Info) Description 09/11/2014 7:30 PM EST Procedure visit Sleep Center at [place] [address] [place] [address] Esther Delcid V [facility] [place] [address] HEATHER (obstructive sleep apnea) Social History Tobacco Use Types Packs/Day Years Used Date Smoking Tobacco: Never Assessed Sex and Gender Information Value Date Recorded Sex Assigned at Not on file Gender Identity Not on file Sexual Orientation Not on file documented as of this encounter Progress Notes * Esther Delcid DO - 09/22/2014 11:35 AM EST Images from the original note were not included. REPORT OF DIAGNOSTIC POLYSOMNOGRAM IDENTIFYING INFORMATION Patient's Name: Parul Solano Date of : 2005 REFERRING PHYSICIAN: PCP PRIMARY CARE PHYSICIAN: ASHLEY WOLF APRN Date of Service: 09/11/2014 Identification: Parul Solano is a 9 y.o. girl with recurrent snoring during the nocturnal sleep in supine sleep, fragmented nights, non-restorative nocturnal sleep, daytime symptoms of inattentiveness ,anxiety and problems with mood and behavior, with complaints of headache and findings on physicalexam ( tonsillar hypertrophy 3+) presents for a diagnostic polysomnogram. Polysomnography: The patient's sleep was evaluated [facility] Sleep was monitored in accordance with recommended AASM guidelines. The recording also included oral/nasal airflow, chest and abdominal respiratory effort, nasal pressure, single channel EKG, intercostalEMG, bilateral tibialis EMG, and oxygen saturation (by pulse oximeter). Comments Sleep/EEG: - sleep efficiency: 91.6% - sleep architecture: Sleep onset latency - 3.5 min; REM sleep latency- 183 min; N1, N2, N3, REM - REM sleep captured:yes - supine sleep captured: yes - supine REM captured: yes Respiratory: - audible snoring: mild - overall AHI: 5.9/hr - CMS AHI: 1.0/hr - supine vs. lateral AHI: 7.8 vs.3.9/hr - baseline SpO2 during recumbent wakefulness: 97% - mean SpO2 during sleep: 97% - min SpO2: 87% associated with hypopnea in lateral REM sleep - sustained hypoxemia: was not observed - Maximum TCO2 - 48.6 ( Torr) - Average TCO2 - 44.1 ( Torr) EKG: - normal sinus rhythm, with no ectopy EMG: - no periodic limb movements were noted - unremarkable - normal atonia of REM Technical Limitations: none Study Conditions: - head of the bed: flat - supplemental oxygen: was not required Post-Study Questionnaire: - sleep quality: average - rested and alert: average Assessment: Parul Solano is a 9 y.o. girl whose polysomnogram reveals moderate pediatric obstructive sleep apnea, with an AHI of 5.9 /hr with significant positional component with supine AHI of 7.8/hr. There were no evidences of hypoventilation based on TcCO2 monitoring data. Given the patient's severity of HEATHER and findings on physical exam ( tonsillar hypertrophy 3+) - referral to ENT for T&A evaluation would be clinically prudent. Once T&A is done- PSG in 2 months after the surgery to evaluate the degree of residual HEATHER would be recommended. If the patient is not a candidate for T&A as per ENT evaluation - CPAP titration trial with subsequent treatment with CPAP would be recommended. I will call patient's parents to discuss these results and recommendations. ICSD diagnosis: - HEATHER Recommendations: - Referral to ENT for T&A consideration. - f/u with Dr. eDlcid in 2 months after T&A - should T&A not indicated as per ENT evaluation - will schedule the patient for CPAP titrationtrial. Patient confirms we may forward notes to ASHLEY WOLF APRN The study was discussed with Dr. Bonilla. Esther Delcid M.D. ( Sleep Medicine Fellow) Study Scoring Results: [facility] [place] [facility] Pediatric REPORT Patient Name: Parul Solano Study Type: PEDIATRIC Sex: Female Study Date: 09/11/2014 Date of : 2005 Hospital #: [id number] Age: 9 Referring Physician: Height: 5' Sleep Specialist: BEST BONILLA M.D. Weight: 100 Recording Tech: LAURI HindsI: 19.5 Scoring Tech: SHIRLEY WISDOM SCORING TECHNOLOGIST COMMENTS: ECG: Ectopy: Description of study: Pediatric Polysomnography was performed utilizing frontal, central & occipital EEG, EOG, submentalis EMG, oronasal thermocouple, nasal pressure, ECG, thoracic and abdominal inductance plethysmography, right and left anterior tibialis EMG, snore sensor, and pulse oximetry according to AASM established guidelines. DIAGNOSTIC REPORT Diagnostic Analysis Sleep Architecture Diagnostic Start Time Lights Off: 21:18:55 Total Number ofStage Shifts: 147 Diagnostic End Time Lights On: 05:51:26 Number of Transitions to Stage 1: 42 Total Recording Time (TRT): 512.5 minutes Total Number of Awakenings: 36 Total Sleep Time (TST): 469.5 minutes Total Number of REM Periods: 4 Sleep Efficiency: 91.6% REM Latency: 183.0 minutes Sleep Onset: 3.5 minutes REM Latency (minus Wake time): 176.0 minutes Stage Results Time (min.) % TST Latency (min.) Wake (after sleep onset): 39.5 - - N1: 33.5 7.1 0.0 N2: 245.5 52.3 1.0 N3: 102.0 21.7 10.5 REM: 88.5 18.8 183.0 Spontaneous Arousals* Total NREM REM Count: 63 54 9 Index (events/hr): 8.1 8.5 6.1 * (EEG Arousal activity not associated with Respiratory or PLM events). Apneas Central Apnea Obstructive Apnea Mixed Apnea Count: 3 0 0 Index (events/hr.): 0.4 0.0 0.0 Mean Duration (sec.): 12 0 0 Longest Event (sec.): 13.2 0 0 REM Count: 1 0 NREM Count: 2 0 0 REM Index: 0.7 0.0 0.0 NREM Index 0.3 0.0 0.0 Supine Index 0.0 0.0 0.0 Nonsupine Index 0.8 0.0 0.0 Hypopneas and RERAs Hypopnea RERA Count: 43 4 Index (events/hr.): 5.5 0.4 Mean Duration (sec.): 25 45.3 Longest Event (sec.): 58 55.1 REM Count: 9 0 NREM Count: 34 4 REM Index: 6.1 0.0 NREM Index: 5.4 0.6 Supine Count: 0 3 Non-Supine Count: 0 1 Supine Index: 12 0.8 Non-supine Index: 5 0.3 Apneas & Hypopneas (by Body-Position) Total Supine Non-Supine Count: 46 31 15 Index (events/hr): 5.9 7.8 3.9 * Results include all hypopneas and apneas. Apneas & Hypopneas (by Body-Position) Total Supine Non-Supine Count: 8 2 6 Index (events/hr): 1.0 0.5 1.6 * Results include only hypopneas with desaturations ? 4% and apneas. RDI (by Body-Position) Total Supine Non-Supine Count: 50 34 16 Index (events/hr): 6.4 8.5 4.2 * Results include all hypopneas, apneas and RERAs. Body Position by Time Non-Supine Supine Sleep (in minutes) 230.0 239.5 REM (in minutes) 60.0 28.5 NREM (in minutes) 170.0 211.0 Periodic Limb Movements(by Sleep Stages) Total PLMs PLMs w/ Arousals Total Sleep: Count Index Count Index REM: 0 0.0 0 0.0 NREM: 0 0.0 0 0.0 Wake (after Lights Off): 0 0.0 0 0.0 Oxygen Saturation Oxygen Saturation NREM REM TST Mean SaO2%: 97 97 97 Min. SaO2%: 88 87 87 % Time of SaO2 in range Awake NREM REM Total Sleep 90 - 100%: 91 96 97 97 80 - 89%: 0 0 0 0 70 - 79%: 0 0 0 0 60 - 69%: 0 0 0 0 50 - 59%: 0 0 0 0 < 50%: 0 0 0 0 Total duration with SaO2 < 90%: 0.0 0.8 0.1 0.9 Total duration with SaO2 < 89%: 0.0 0.1 0.1 0.3 Total duration with SaO2 < 88%: 0.0 0.0 0.1 0.1 ETCO2 Wake NREM REM TST TIB Mean ETCO2: - - - - - Max. ETCO2: - - - - - % Time of ETCO2 in range > 80 (mmHg): 70 - 80 (mmHg): 60 - 69 (mmHg): 55 - 59 (mmHg): 50 - 54 (mmHg): 45 - 49 (mmHg): 40 - 44 (mmHg): 35 - 39 (mmHg): 30 - 34 (mmHg): 20 - 29 (mmHg): 0 - 20 (mmHg): % Artifact / Bad Data: Total duration with ETCO2> 45 mmHg. Total duration with ETCO2> 50 mmHg. TcCO2 REM NREM Total Maximum TCO2 (Torr): 48.1 48.6 48.6 Average TCO2 (Torr): 45 43.9 44.1 REM NREM Total Duration (mins) Cumulated % Duration (mins) Cumulated % Duration (mins) Cumulated % <30 0.0 0.0 0.0 0.0 0.1 0.0 ?30, ?40 0.0 0.0 1.8 0.5 1.8 0.4 ?40, ?47 82.9 93.7 356.6 93.6 439.5 93.6 ?47, ?50 5.6 6.3 21.6 5.7 27.2 5.8 ?50, ?55 0.0 0.0 0.0 0.0 0.0 0.0 ?55, ?65 0.0 0.0 0.0 0.0 0.0 0.0 ?65, ?75 0.0 0.0 0.0 0.0 0.0 0.0 ?75 0.0 0.0 0.0 0.0 0.0 0.0 Heart Rate NREM REM TST Mean HR (bpm): 68 73 69 Min. HR (bpm): 51 52 51 Max. HR (bpm): 88 88 88 PLM Body Position * Best Bonilla MD - 09/18/2014 11:11 AM EST I reviewed the polysomnography in its entirety. I have reviewed Dr. Delcid's note and agree with the findings and recommendations. Overall sleep apnea is in the mild-moderate range. It is unclear whether desaturations < 90% areaccurate versus secondary to oximetry artifact. No evidence of sleep-related hypoventilation. Agreewith referral to ENT to evaluate for T&A. BEST BONILLA MD documented in this encounter Miscellaneous Notes * Addendum Note - Best Bonilla MD - 10/11/2014 8:09 AM ESTAddended by: BEST BONILLA on: 10/11/2014 08:09 AM Modules accepted: Level of Service documented in this encounter Plan of Treatment Not on file documented as of this encounter Visit Diagnoses Diagnosis HEATHER (obstructive sleep apnea) Obstructive sleep apnea (adult) (pediatric) documented in this encounter Care Teams Mail Weigher Relationship Specialty Start Date End Date Ashley Wolf APRN PCP - General 05/20/14 08/13/20 documented as of this encounter
--- OUTSIDE RECORDS SUMMARY | 2024-06-13 02:04 | XMS_ITS | Encounter Summary ---
[place] [address] Care Team Providers Care Child Welfare Specialist Name Role Phone Arki Wolfi Kamala MCDONOUGH Primary Care Provider Unav ailable Encounter Details Date Type Department Care Team (Late st Contact Info) Description 08/15/2014 Notes Only Sleep Center at [facility] [address] [place] [address] Esther Delcid DO [facility] [place] [address] Social History Tobacco Use Types Packs/Day Years Used Date Smoking Tobacco: Never Assessed Sex and Gender Information Value Date Recorded Sex Assigned at Not on file Gender Identity Not on file Sexual Orientation Not on file documented as of this encounter Progress Notes * Ned Farmer MD - 10/11/2014 8:28 AM EST I reviewed the polysomnography in its entirety. I have reviewed 's note and agree with the findings and recommendations. NED FARMER MD * Esther Delcid DO - 09/18/2014 10:14 AM EST Images from the original note were not included. REPORT OF DIAGNOSTIC POLYSOMNOGRAM IDENTIFYING INFORMATION Patient's Name: Parul Solano Date of : 2005 REFERRING PHYSICIAN: Ashley Wolf APRN PRIMARY CARE PHYSICIAN: ASHLEY WOLF APRN Date of Service: 08/15/2014 Identification: Parul Solano is a 9 y.o. girls with recurrent snoring during the nocturnal supine sleep, fragmented nights, non-restorative nights, daytime symptoms of inattentiveness ,anxiety and problems with mood and behavior, complaints of headache and findings on physical exam ( tonsillar hypertrophy 3+) presents for a diagnostic polysomnogram. Polysomnography: The patient's sleep was evaluated for one night at the [facility]. Sleep was monitored in accordance with recommended AASM guidelines. The recording also included oral/nasal airflow, chest and abdominal respiratory effort, nasal pressure, single channel EKG, intercostalEMG, bilateral tibialis EMG, and oxygen saturation (by pulse oximeter). Comments Sleep/EEG: - sleep efficiency: 87.1% - sleep architecture: Sleep Oncet latency- 8 min; REM onset latency - 144.5 min; N1, N2, N3, REM - REM sleep captured: yes - supine sleep captured: yes - supine REM captured:yes Respiratory: - audible snoring: light - overall AHI: 0.1/hr - CMS AHI : 0 /hr - baseline SpO2 during recumbent wakefulness: 97% - baseline SpO2 during sleep: 97% - mean SpO2 during sleep:97% - no episodes of desaturations during the sleep was observed. Reported minimal SvO2 of 79% - appeared to be a technical erroe EKG: - normal sinus rhythm, with no ectopy EMG: - there were no periodic limb movements noted - unremarkable - normal atonia of REM Technical Limitations: none Study Conditions: - head of the bed: flat - supplemental oxygen: was not required Post-Study Questionnaire: - sleep quality: average - rested and alert: average Assessment: Parul Solano is a 9 y.o. girl with complaints of nocturnal snoring underwent polysomnogram with no nasal pressure recording. Lack of nasal pressure recording data makes this study unrevealing for degree of HEATHER. Hence, this study needs to be re-done with appropriate study and patient set-up . The charge for this study will not be submitted . The patient will be requested to show up for repeat Sleep study test. The case was discussed with Dr. Farmer. Esther Delcid M.D. ( Sleep Medicine Fellow) [facility] [place] [facility] Pediatric REPORT Patient Name: Parul Solano Study Type: PSG Sex: Female Study Date: 08/15/2014 Date of : 2005 Hospital #: [id number] Age: 9 Referring Physician: Keyon: Philip' Sleep Specialist: BRENDA UGARTE Weight: 92.2 Recording Tech: B.M.I: 18.0 Scoring Tech: NORA Shah SCORING TECHNOLOGIST COMMENTS: ECG: NSR Ectopy: The PSG revealed no significant HEATHER events. There was little to no snoring. There was no significant PLM. DED/// Description of study: Pediatric Polysomnography was performed utilizing frontal, central & occipital EEG, EOG, submentalis EMG, oronasal thermocouple, nasal pressure, ECG, thoracic and abdominal inductance plethysmography, right and left anterior tibialis EMG, snore sensor, and pulse oximetry according to AASM established guidelines. DIAGNOSTIC REPORT Diagnostic Analysis Sleep Architecture Diagnostic Start Time Lights Off: 21:18:02 Total Number ofStage Shifts: 144 Diagnostic End Time Lights On: 06:11:33 Number of Transitions to Stage 1: 37 Total Recording Time (TRT): 533.5 minutes Total Number of Awakenings: 23 Total Sleep Time (TST): 464.5 minutes Total Number of REM Periods: 4 Sleep Efficiency: 87.1% REM Latency: 144.5 minutes Sleep Onset: 8.0 minutes REM Latency (minus Wake time): 133.5 minutes Stage Results Time (min.) % TST Latency (min.) Wake (after sleep onset): 61.0 - - N1: 24.5 5.3 0.0 N2: 230.5 49.6 1.0 N3: 134.0 28.8 6.0 REM: 75.5 16.3 144.5 Spontaneous Arousals* Total NREM REM Count: 73 61 12 Index (events/hr): 9.4 9.4 9.5 * (EEG Arousal activity not associated with Respiratory or PLM events). Apneas Central Apnea Obstructive Apnea Mixed Apnea Count: 0 0 0 Index (events/hr.): 0.0 0.0 0.0 Mean Duration (sec.): 0 0 0 Longest Event (sec.): 0 0 0 REM Count: 0 0 NREM Count: 0 0 0 REM Index: 0.0 0.0 0.0 NREM Index 0.0 0.0 0.0 Supine Index 0.0 0.0 0.0 Nonsupine Index 0.0 0.0 0.0 Hypopneas and RERAs Hypopnea RERA Count: 1 0 Index (events/hr.): 0.1 0.0 Mean Duration (sec.): 19 0 Longest Event (sec.): 19 0 REM Count: 1 0 NREM Count: 0 0 REM Index: 0.8 0.0 NREM Index: 0.0 0.0 Supine Count: 0 0 Non-Supine Count: 0 0 Supine Index: 0 0.0 Non-supine Index: 0 0.0 Apneas & Hypopneas (by Body-Position) Total Supine Non-Supine Count: 1 0 1 Index (events/hr): 0.1 0.0 0.2 * Results include all hypopneas and apneas. Apneas & Hypopneas (by Body-Position) Total Supine Non-Supine Count: 0 0 0 Index (events/hr): 0.0 0.0 0.0 * Results include only hypopneas with desaturations ? 4% and apneas. RDI (by Body-Position) Total Supine Non-Supine Count: 1 0 1 Index (events/hr): 0.1 0.0 0.2 * Results include all hypopneas, apneas and RERAs. Body Position by Time Non-Supine Supine Sleep (in minutes) 332.0 132.5 REM (in minutes) 52.5 23.0 NREM (in minutes) 279.5 109.5 Periodic Limb Movements(by Sleep Stages) Total PLMs PLMs w/ Arousals Total Sleep: Count Index Count Index REM: 0 0.0 0 0.0 NREM: 16 2.5 3 0.5 Wake (after Lights Off): 0 0.0 0 0.0 Oxygen Saturation Oxygen Saturation NREM REM TST Mean SaO2%: 97 97 97 Min. SaO2%: 87 79 79 % Time of SaO2 in range Awake NREM REM Total Sleep 90 - 100%: 83 97 99 98 80 - 89%: 0 0 0 0 70 - 79%: 0 0 0 0 60 - 69%: 0 0 0 0 50 - 59%: 0 0 0 0 < 50%: 0 0 0 0 Total duration with SaO2 < 90%: 0.2 0.4 0.5 0.9 Total duration with SaO2 < 89%: 0.2 0.1 0.5 0.6 Total duration with SaO2 < 88%: 0.2 0.0 0.4 0.5 TcCO2 REM NREM Total Maximum TCO2 (Torr): 124.7 124.7 124.7 Average TCO2 (Torr): -15.2 -15.1 -15.1 REM NREM Total Duration (mins) Cumulated % Duration (mins) Cumulated % Duration (mins) Cumulated % <30 42.0 55.6 219.0 56.3 260.9 56.2 ?30, ?40 1.2 1.6 6.5 1.7 7.7 1.7 ?40, ?47 1.1 1.5 5.0 1.3 6.1 1.3 ?47, ?50 0.6 0.8 2.1 0.5 2.7 0.6 ?50, ?55 0.8 1.0 3.7 0.9 4.5 1.0 ?55, ?65 1.6 2.1 7.8 2.0 9.4 2.0 ?65, ?75 1.8 2.4 8.7 2.2 10.5 2.3 ?75 26.4 34.9 136.3 35.1 162.7 35.0 Heart Rate NREM REM TST Mean HR (bpm): 68 74 69 Min. HR (bpm): 49 50 49 Max. HR (bpm): 90 90 90 PLM Body Position documented in this encounter Plan of Treatment Not on file documented as of this encounter Visit Diagnoses Not on filedocumented in this encounter Care Teams Child Welfare Specialist Relationship Specialty Start Date End Date Ashley Wolf APRN PCP - General 05/20/14 08/13/20 documented as of this encounter
[2024-06-13] MEDS: Methacholine 100 MG VIAL IH (12:13)
[2024-06-13] MEDS: Albuterol HFA 18 GM 200 PUFF INH IH (12:14)
[2024-06-13] MEDS: Inhaler, Assist Device 1 EACH MC (12:14)
--- NOTE | 2024-06-18 09:11 | W.PFT ---
Date of service: 06/13/24 Time of Service: 10:00 Pulmonary Function Test Result Requesting Provider Mable Kasper Indications: ? Asthma Impression Spirometry normal FEV1/FVC is 77%. Normal FEV1 at 98%. No reversibility after bronchodilator. Methacholine challenge Baseline FEV1 of 3.53 L. Patient received incremental doses of methacholine and had a 19% decrease in FEV1 after 16 mg/ML. Impression 19% decrease in FEV1 after highest dose of methacholine which is technically a negative study as this results could be seen in normal individuals. Clinical correlation is advised. Clinical Correlation therefore is recommended.
== END 2024-06-13 01:57 | disposition home or self-care (01) ==
LOC: RT 01:57
PROVIDERS: PCP Nurse Practitioner Family; Visit Provider Nurse Practitioner Family
DX: J45.909 Unspecified asthma, uncomplicated (principal)
CPT/HCPCS: 00123; 94060; 94070; J7674

== ENCOUNTER 2024-06-20 00:40 | Outpatient (CLI) | payer OTHER, SELFPAY ==
[2024-06-20 10:55] LABS: Potassium 3.8 mmol/L (3.5-5.1)
[2024-06-20 10:57] LABS: Magnesium 2.1 mg/dL (1.8-2.4)
== END 2024-06-20 00:41 | disposition home or self-care (01) ==
LOC: LBO 00:40
PROVIDERS: PCP Nurse Practitioner Family; Referring Provider Nurse Practitioner Family; Visit Provider Nurse Practitioner Family
DX: R55 Syncope and collapse (principal)
CPT/HCPCS: 36415; 83735; 84132

== ENCOUNTER 2024-07-11 11:06 | Outpatient (CLI) | payer OTHER, SELFPAY ==
--- NOTE | 2024-07-31 11:59 | W.CARDEVENT ---
Date of service: 07/31/24 Time of Service: 11:59 Cardiac Event Recorder Referring Provider:: Mable Kasper Indications:: Syncope Cardiac Event Note: This is a cardiac event monitor. Patient was monitored for 7 days and 17 hours Rhythm throughout was sinus with an average heart rate of 76. Minimum was 42, maximum 173 A total of 3 isolated PVCs were recorded There were very rare isolated atrial premature beats, a total of 185 There was no atrial fibrillation, no high-grade AV block, no pauses greater than 3 seconds symptoms were reported which correlated to sinus rhythm .
== END 2024-07-11 11:07 | disposition home or self-care (01) ==
PROVIDERS: PCP Nurse Practitioner Family; Visit Provider Nurse Practitioner Family
DX: R55 Syncope and collapse (principal)
CPT/HCPCS: 93246

== ENCOUNTER 2024-10-24 12:08 | Outpatient (CLI) | payer OTHER, SELFPAY ==
--- OUTSIDE RECORDS SUMMARY | 2024-10-24 12:10 | XMS_ITS | Encounter Summary ---
Author Organization [facility] [place] [address] Care Team Providers Care Air Export Agent Name Role Phone Lizzette Wolf APRN Primary Care Provider Unav ailable Encounter Details Date Type Department Care Team (Late st Contact Info) Description 01/19/2018 Telephone Dermatology at [facility] [address] [place] [address] Nishi Buckner MD [facility] [address] [place] [address] Social History Tobacco Use Types Packs/Day Years [...] concerns. NISHI BUCKNER MD Resident in Dermatology [facility] documented in this encounter Plan of Treatment Not on file documented as of this encounter Visit Diagnoses Not on filedocumented in this encounter Care Teams Air Export Agent Relationship Specialty Start Date End Date Lizzette Wolf, SENIOR IT ASSISTANT PCP - General 05/20/14 08/13/20 documented as of this encounter
--- OUTSIDE RECORDS SUMMARY | 2024-10-24 12:10 | XMS_ITS | Clinical Summary ---
Author Organization [facility] Address [address] [place] [address] Care Team Providers Care Chiseler Head Name Role Phone Jayne Mercedes PEDIATRIC ACUTE CARE UNIT NURSE Primary Care Provider + Social History Tobacco Use Types Packs/Day Years Used Date Smoking Tobacco: Never Assessed Comments Unknown Sex and Gender Information Value Date Recorded Sex Assigned at Not on file Legal Sex Female 7:24 EDT Gender Identity Not on file Sexual Orientation Not on file Plan of Treatment Health Maintenance Due Date Last Done Comments Hepatitis C Screen 2005 Hepatitis B Vaccine (1 of 3 - 19+ 3-dose series) 06/25 COVID-19 Vaccine ( season) 2024 Care Teams Chiseler Head Relationship Specialty Start Date End Date Jayne Mercedes NP [address] [address] PCP - General 05/28/19
--- OUTSIDE RECORDS SUMMARY | 2024-10-24 12:10 | XMS_ITS | Encounter Summary ---
Author Organization [facility] Address [facility] [place] [address] Care Team Providers Care Bioinformatics Specialist Name Role Phone Charlie Cha MD Primary Care Provider [phone] Encounter Details Date Type Department Care Team (Late st Contact Info) Description 10/12/2020 Notes Only Care Management [facility] [place] [id number] Rox Garcia, LINDA Social History Tobacco Use Types Packs/Day Years Used Date Smoking Tobacco: Passive Smo ke Exposure - Never Smoker Comments:Biological mother s mokes outside and in car. Sex and Gender Information Value Date Recorded Sex Assigned at Not on file Gender Identity Not on file Sexual Orientation Not on file documented as of this encounter Progress Notes * Rox aGrcia MSW - 10/12/2020 3:13 PM EST Office of Care Management/ Outpatient Social Work Note Patient:15yo FTM accompanied by Fop. Relevant Information:First appt in Ped transgender Clinic. Introduced myself and role. [place] and family moved to [place] from [place] of [facility] 6 years ago. They relocated to current location from [place], [place] Pt attends [employer], about 10 minutes away. Pt aware of [facility] [place] through agood friend, Jose Miguel, who he described as the person to go to when looking for resources. Gave them a copy of lists for Therapists in their area and in nearby [place]. Pt aware it could take a while [...] future appt for a check-in. LINDA Stanford Housekeeping/Laundry, Care Management Pediatric Audiology, Endocrinology, Nephrology [phone] documented in this encounter Plan of Treatment Not on file documented as of this encounter Visit Diagnoses Not on filedocumented in this encounter Care Teams Bioinformatics Specialist Relationship Specialty Start Date End Date Charlie Cha MD [address] [place] [address] [place] [phone] PCP - General Pediatrics 08/14/20 documented as of this encounter
--- OUTSIDE RECORDS SUMMARY | 2024-10-24 12:10 | XMS_ITS | Encounter Summary ---
Author Organization [facility] Address [place] [id number] Care Team Providers Care Cafeteria Attendant Name Role Phone Lizzette Wolf APRN Primary Care Provider Unav ailable Reason for Referral * Consultation (Routine) - Closed Specialty Diagnoses / Procedures Referred By Shira wiseman Referred To Contact Otolaryngology Diagnoses HEATHER (obstructive sleep apnea) Esther Delcid DO [facility] [place] [address] [facility] Otolaryngology [address] [place] [phone] Referral ID Status Reason Start Date Expiration Date V isits Requested Visits Authorized [id number] Closed Specialty Service Requested 09/22/2014 03/21/2015 1 1 Encounter Details Date Type Department Care Team (Late st Contact Info) Description 09/22/2014 Orders Only Sleep Center at [facility] [address] [place] [address] Esther Delcid DO HEATHER (obstructive sleep apnea) Social History Tobacco [...] (pediatric) documented in this encounter Care Teams Cafeteria Attendant Relationship Specialty Start Date End Date Lizzette Wolf, CEASAR PCP - General 05/20/14 08/13/20 documented as of this encounter
--- OUTSIDE RECORDS SUMMARY | 2024-10-24 12:10 | XMS_ITS | Clinical Summary ---
Author Organization [facility] [address] Care Team Providers Care Candy Butcher Name Role Phone Charlie Cha MD Primary Care Provider [phone] Allergies No known active allergies Medications Medication [...] Hepatitis B vaccine (0-59 yrs) (1) 2022 Tetanus/Diphtheria/Pertussis Vaccines (1 - Tdap) 06/25 PAP Smear 2024 Covid-19 Vaccine ( - season) 2024 Influenza (Flu) vaccine (1 o f 1 - Influenza standard series) 06/29/2024 Care Teams Candy Butcher Relationship Specialty Start Date End Date Charlie Cha MD [address] [place] [phone] PCP - General Pediatrics 08/14/20
--- OUTSIDE RECORDS SUMMARY | 2024-10-24 12:10 | XMS_ITS | Encounter Summary ---
[place] [address] Care Team Providers Care Rotary Filter Operator Name Role Phone Lizzette Wolf APRN Primary Care Provider Unav ailable Encounter Details Date Type Department Care Team (Late st Contact Info) Description 06/10/2014 External Results [place] [phone] Unknown None Social History Tobacco Use Types [...] on filedocumented in this encounter Care Teams Rotary Filter Operator Relationship Specialty Start Date End Date Lizzette Wolf, CEASAR PCP - General 05/20/14 08/13/20 documented as of this encounter
--- OUTSIDE RECORDS SUMMARY | 2024-10-24 12:10 | XMS_ITS | Encounter Summary ---
Author Organization [facility] [place] [address] Care Team Providers Care Label Press Operator Name Role Phone Lizzette Wolf APRN Primary Care Provider Unav ailable Encounter Details Date Type Department Care Team (Late st Contact Info) Description 11/03/2014 Telephone [place] [phone] Hoda Moncada, RN Social History Tobacco Use [...] on filedocumented in this encounter Care Teams Label Press Operator Relationship Specialty Start Date End Date Lizzette Wolf APRN PCP - General 05/20/14 08/13/20 documented as of this encounter
--- OUTSIDE RECORDS SUMMARY | 2024-10-24 12:10 | XMS_ITS | Encounter Summary ---
[place] [address] Care Team Providers Care Digital Design Engineer Name Role Phone Lizzette Wolf APRN Primary Care Provider Unav ailable Reason for Visit * Reason Onset Date Comments Triage 08/04/2020 Encounter Details Date Type Department Care Team ([facility] st Contact Info) Description 08/04/2020 [place] [address] Rose Costa APRN [address] [place] [address] Triage Social History Tobacco Use Types Packs/Day [...] Voiding normally Employee or household member at [facility]? No If yes, please state whether employee [...] member of or healthcare worker at a fci/intermediate, assisted facility or terminologist care facility (LTCF), and all first responders. [...] Date, time and location of test: 08/04 dun[place] 1110 If sending for testing ask the [...] and infectious disease based on CDC guidelines, [place] Department of Health and Human Services, and [facility] policy. Patient/Responsible green party voices an understanding of advice: yes Patient/Responsible green party intends to comply with actions/disposition: yes All [...] clean your hands with an alcohol-based hand director of marketing and promotions that contains at least 60% alcohol. 8. [...] more information on Covid-19 *May test at [facility] only. documented in this encounter Plan of Treatment Not on file documented as of this encounter Visit Diagnoses Not on filedocumented in this encounter Care Teams Digital Design Engineer Relationship Specialty Start Date End Date Lizzette Wolf APRN PCP - General 05/20/14 08/13/20 documented as of this encounter
--- OUTSIDE RECORDS SUMMARY | 2024-10-24 12:10 | XMS_ITS | Encounter Summary ---
Author Organization [facility] Address [address] [place] [address] Care Team Providers Care Physician Assistant Psychiatry Name Role Phone Jayne Mercedes CAN CRIMPER Primary Care Provider + Encounter Details Date Type Department Care Team (Late st Contact Info) Description 02/07/2024 Lab Requisition [facility] Pathology & Laboratory Medicine - [facility] [address], [place] [id number] Outr Resulting Lab, Provider Social History Tobacco [...] 2.8 - 5.3 pg/mL 02/07/2024 22:08 EDT [facility] Blood VENOUS BLOOD / Unknown 02/07/2024 14:30 EDT 02/07/2024 21:38 EDT us Provider Outr Resulting Lab CHEMISTRY & BLOOD GA S ORDERABLES Final Result [facility] [address] [place] [address] documented in this encounter Visit Diagnoses Not on filedocumented in this encounter Care Teams Physician Assistant Psychiatry Relationship Specialty Start Date End Date Jayne Mercedes NP [address] [place] [address] PCP - General 05/28/19 documented as of this encounter
--- OUTSIDE RECORDS SUMMARY | 2024-10-24 12:10 | XMS_ITS | Encounter Summary ---
Author Organization [facility] [place] [address] Care Team Providers Care Home Aid Name Role Phone Ashley Wolf APRN Primary Care Provider Unav ailable Encounter Details Date Type Department Care Team (Late st Contact Info) Description 08/15/2014 Notes Only Sleep Center at [facility] [address] [place] [address] Esther Delcid DO Social History Tobacco Use Types Packs/Day Years [...] Esther Delcid M.D. ( Sleep Medicine Fellow) [facility] Pediatric REPORT Patient Name: Parul Solano Study Type: PSG Sex: Female Study Date: 08/15/2014 Date of : 2005 Hospital #: [id number] Age: 9 Referring Physician: Height: 5' Sleep Specialist: BRENDA UGARTE Weight: 92.2 Recording [...] * Results include only hypopneas with desaturations >= 4% and apneas. RDI (by Body-Position) Total [...] <30 42.0 55.6 219.0 56.3 260.9 56.2 >=30, <=40 1.2 1.6 6.5 1.7 7.7 1.7 >=40, <=47 1.1 1.5 5.0 1.3 6.1 1.3 >=47, <=50 0.6 0.8 2.1 0.5 2.7 0.6 >=50, <=55 0.8 1.0 3.7 0.9 4.5 1.0 >=55, <=65 1.6 2.1 7.8 2.0 9.4 2.0 >=65, <=75 1.8 2.4 8.7 2.2 10.5 2.3 >=75 26.4 34.9 136.3 35.1 162.7 35.0 Heart Rate NREM REM TST Mean HR (bpm): 68 74 69 Min. HR (bpm): 49 50 49 Max. HR (bpm): 90 90 90 PLM Body Position documented in this encounter Plan of Treatment Not on file documented as of this encounter Visit Diagnoses Not on filedocumented in this encounter Care Teams Home Aid Relationship Specialty Start Date End Date Ashley Wolf APRN PCP - General 05/20/14 08/13/20 documented as of this encounter
--- OUTSIDE RECORDS SUMMARY | 2024-10-24 12:10 | XMS_ITS | Encounter Summary ---
Author Organization [facility] Address [facility] [place] [address] Care Team Providers Care Consumer Services Consultant Name Role Phone Luciano Ashley Kamala MCDONOUGH Primary Care Provider Unav ailable Encounter Details Date Type Department Care Team (Latest Contact Info) Description 12/23/2014 8:05 AM EST - 12/23/2014 10:36 AM EST Hospital [place] [address] Francoise Ford MD [facility] [place] [address] Snoring; HEATHER (obstructive sleep apnea); Tonsillar and [...] soreness, which usually goes away in 12-24hours. [facility] - Information Same Day Surgery * Patient Instructions* Pliar Mac - 12/23/2014 9:21 AM EST Patient [...] acetaminophen-narcotic combination medication (Lortab or Roxicet) with unti-xpl-pkrwzvi ibuprofen (Motrin, Advil) in a staggered fashion. Each medicine, when used alone, is given every 6 hours; however,if you stagger the dosing and go wolh-kku-gapyb between the two medications, you can provide [...] you are concernedabout your child???s nutrition, offer Dexter Instant Breakfast or PediaSure. Fever: A low-grade [...] may have in the post-operative period. The [facility] dividing machine operator helper can be reached at . The following [...] Francoise Ford MD PhD Pediatric Otolaryngology [facility] [place], [place] [address] Office Source Note - Francoise Ford MD - 12/22/2014 7:54 PM EST Pediatric Otolaryngology Consultation Note Date of Visit: 11/02/2014 Location of Visit: Otolaryngology Clinic, [facility] Patient: Parul Solano ([id number]; 2005) Primary Care Provider: ASHLEY WOLF APRN [...] no known allergies. Social History: Lives in [place] [address], with dad, step-mom, 2 brothers, 1 sister, [...] Visit: 11/02/2014 Location of Visit: Otolaryngology Clinic, [facility] Patient: Parul Solano ([id number]; 2005) Primary Care Provider: ASHLEY WOLF APRN [...] no known allergies. Social History: Lives in [place] [facility] [address], with dad, step-mom, 2 brothers, 1 sister, [...] Ford MD - 12/23/2014 9:21 AM EST [facility] Operative Note Patient Name: Parul Solano : [id number] MR#: [id number] Case Date: 12/23/2014 Surgeon: Surgeon(s) and Role: * Francoise Ford MD - Primary * Pliar Mac MD - Resident-Surgeon Cricket Preoperative diagnosis: [...] (12/23/2014 9:20 AM EST) Final Diagnosis ? [facility] ? Provider: ?? FRANCOISE FORD ?Pt. Name: ?? DUNIA PARUL Swann ? Acc #: ?[id number] ?Pt. ? Col Date: ?? 12/23/2014 ? [...] Diagnosis: ? Same 12/24/2014 7:11 AM EST [facility] BILATERAL PALATINE TONSILS / Unknown 12/23/2014 9:20 AM EST 12/23/2014 9:20 AM EST Francoise Ford MD PATHOLOGY/CYTOLOGY O TEODORA Performing Organization Address [facility] Co de Phone Number HANNA MONTEIRO [facility] [place] [address] * Specimen to Pathology (surgical or derm) (12/23/2014 9:11 AM EST) AP Specimen 12/23/2014 9:11 AM EST 12/23/2014 9:11 AM EST Narrative HANNA MONTEIRO - 12/23/2014 9:11 AM EST Specimen requisition ordered. ??Separate Pathology report to follow Francoise Ford MD PATHOLOGY/CYTOLOGY O TEODORA Performing Organization Address [facility] Co de Phone Number HANNA GIOVANNICRISTIANE documented [...] RN) documented in this encounter Care Teams Consumer Services Consultant Relationship Specialty Start Date End Date Ashley Wolf, SECRETARY TO BOARD OF COMMISSIONERS PCP - General 05/20/14 08/13/20 documented as of this encounter
--- OUTSIDE RECORDS SUMMARY | 2024-10-24 12:10 | XMS_ITS | Encounter Summary ---
[place] [address] Care Team Providers Care Manuscripts Curator Name Role Phone Lizzette Wolf APRN Primary Care Provider Unav ailable Reason for Visit * Reason Onset Date Comments Results 08/05/2020 COVID-19 Negativ e Encounter Details Date Type Department Care Team (Late st Contact Info) Description 08/05/2020 [place] [phone] Pamela Torres LNA Results (COVID-19 Negative) Social [...] on filedocumented in this encounter Care Teams Manuscripts Curator Relationship Specialty Start Date End Date Lizzette Wolf APRN PCP - General 05/20/14 08/13/20 documented as of this encounter
--- OUTSIDE RECORDS SUMMARY | 2024-10-24 12:10 | XMS_ITS | Encounter Summary ---
Author Organization [facility] [address] Care Team Providers Care Shell Shop Supervisor Name Role Phone Charlie Cha MD Primary Care Provider [phone] Reason for Visit * Consultation (Routine) - Closed Specialty Diagnoses / Procedures Referred By Shira wiseman Referred To Contact Pediatric Endocrinology Diagnoses Sequelae of unspecified nutritional deficiency Charlie Cha MD [address] [place] [phone] [facility] Pedi Endo [address] [place] [address] Referral ID Status Reason Start Date Expiration Date V isits Requested Visits Authorized [id number] Closed Consult, Test & Treat Connection Center PCP Updated and/or Approved 08/10/2020 08/10/2021 6 6 Encounter Details Date Type Department Care Team (Late st Contact Info) Description 10/12/2020 1:00 PM EST Office Visit Pediatric [place] [address] Zoey Mckinney MD [facility] DR PEDIATRIC [place] [address] Gender dysphoria Social History Tobacco [...] 45.11% 10/12 12:55 PM EST Growth Chart: [facility] (Girls, 2- 20 Years) documented in this encounter Progress Notes * Zoey Mckinney MD - 10/12/2020 1:00 PM EST [place] Transgender Initial Consultation Name: Parul Solano Age: 15 y.o. 3 m.o. : 2005 Gender: Female to Male Preferred first name: Mk Pronouns: he/him PCP/Referring MD: Charlie Cha MD [address] [place] [address] , Patient Active Problem List Diagnosis Code [...] last visit: N/A History obtained from: HPI: Paurl (preferred name Mk) is a 15 y.o. [...] %ile based on CDC (Girls, 2-20 Years) zxgzcf-pss-xhu data based on Weight recorded on 10/12/2020. 74 %ile based on CDC (Girls, 2-20 Years) Bkkgpsx-ahn-kxb data based on Stature recorded on 10/12/2020. General: NAD, well appearing HEENT: PERRLA, EOMI, MMM Thyroid: no thyromegaly Lungs: CTA B, no W/R/R Cardiac: RRR< no murmur Abdomen: soft/NT/ND Agus stage Breasts: 5 Pubic Hair: Neuro: 2+ patellar reflexes, normal gait Skin: Acne: mild, few comedonal acne on face Facial hair: none ASSESSMENT AND PLAN: Mk is a 15 y.o. 3 m.o. y.o. female with possible gender dysphoria. He will [...] that he could become permanently infertile with chcf testosterone treatment was discussed today. There are [...] comfortable doing a gender evaluation. Our social security benefits interviewer,Rox Garcia, met with the family after the [...] Clerkship Director, Medical Student Education in Pediatrics Fowl Blood Tester Clinical Professor of Pediatrics [facility] [employer] [facility] Office: [phone] [place] Office: [phone] documented in this encounter Plan of Treatment Not on file documented as of this encounter Visit Diagnoses Diagnosis Gender dysphoria Gender identity disorder in children documented in this encounter Care Teams Shell Shop Supervisor Relationship Specialty Start Date End Date Charlie Cha MD [address] [place] [phone] PCP - General Pediatrics 08/14/20 documented as of this encounter
--- OUTSIDE RECORDS SUMMARY | 2024-10-24 12:10 | XMS_ITS | Encounter Summary ---
[place] [address] Care Team Providers Care Kindergartners Helper Name Role Phone Lizzette Wolf APRN Primary Care Provider Unav ailable Encounter Details Date Type Department Care Team (Late st Contact Info) Description 11/02/2014 Telephone [place] [phone] Heather Khalil Social History Tobacco Use Types [...] on filedocumented in this encounter Care Teams Kindergartners Helper Relationship Specialty Start Date End Date Lizzette Wolf APRN PCP - General 05/20/14 08/13/20 documented as of this encounter
--- OUTSIDE RECORDS SUMMARY | 2024-10-24 12:10 | XMS_ITS | Encounter Summary ---
Author Organization [facility] [place] [address] Care Team Providers Care Lithographic Stripper Name Role Phone Arik Wolfi Kamala MCDONOUGH Primary Care Provider Unav ailable Reason for Visit * Reason Comments Rash * Consultation (Routine) - Closed Specialty Diagnoses / Procedures Referred By Shira wiseman Referred To Contact Dermatology Diagnoses RASH /IMPETIGO/ RESEPTAL CELLULITIS Keya Ruggiero MD [address] [place] [address] [facility] Dermatology [address] [place] [address] Referral ID Status Reason Start Date Expiration Date Visits Re quested Visits Authorized [id number] Closed 01/14/2018 01/14/2019 1 1 Encounter Details Date Type Department Care Team (Late st Contact Info) Description 01/14/2018 2:45 PM EDT Office Visit Dermatology at [facility] [address] [place] [address] Nishi Buckner MD [facility] [address] [address] Impetigo; Atopic dermatitis, unspecified type Social History [...] improvement. She has been seen by an radial drill press set up operator, and they said there was no eye abnormality. The eye itself is painful, and itchy. Does not use eyedrops. Washes hair with Dove color care shampoo. She does dye her hair; last colored hair before . No nail malay. Denies history of cold sores. Here today with step mom. Relevant Skin History: - Okay to leave detailed message with results? yes - Skin cancer (including type): no - Eczema Family History: Melanoma: no Relevant Social History: - goes to [employer] Lives with Dad and step mom Meds: [...] by NISHI BUCKNER MD Resident in Dermatology [facility] Patient seen in conjunction with staff manager of care: Herrera Acuña MD Section of Dermatology [facility] * Herrera Acuña III, MD - [...] EDT) HSV-1 PCR Not Detected Not Detected [facility] HSV-2 PCR Not Detected Not Detected [facility] HSV Source Lesion [facility] Comment: The only FDA approved specimen types for this assay are CSF and genital lesions. Lesion specimen (specimen) 01/14/2018 5:29 PM EDT 01/14/2018 6:27 PM EDT Narrative Resulting Agency Comment Spec In Lab Herrera Acuña III, MD MICROBIOLOGY - GENERAL ORDERABLES [facility] [place] [address] * Skin/Superficial Wound Culture Face (01/14/2018 5:29 PM EDT) Skin/Superfic ial Wound Culture No growth [facility] Gram Stain No WBC's seen. No microorganisms seen. [facility] Swab from superficial wound (specimen) FACE STRUCTURE / Unknown 01/14/2018 5:29 PM EDT 01/14/2018 6:25 PM EDT Narrative Resulting Agency Comment Spec In Lab Herrera Acuña III, MD MICROBIOLOGY - GENERAL ORDERABLES Performing Organization Address City/State/[facility] Co de Phone Number [facility] [place] [address] documented in this encounter Visit Diagnoses Diagnosis Impetigo Atopic dermatitis, unspecified type documented in this encounter Care Teams Lithographic Stripper Relationship Specialty Start Date End Date Lizzette Wolf, FISH AND WILDLIFE WARDEN PCP - General 05/20/14 08/13/20 documented as of this encounter
--- OUTSIDE RECORDS SUMMARY | 2024-10-24 12:10 | XMS_ITS | Referral Summary ---
Author Organization [facility] Address [address] [place] [address] Care Team Providers Care Fan Runner Name Role Phone Jayne Mercedes SLICING MACHINE OPERATOR/TENDER Primary Care Provider + Social History Tobacco Use Types Packs/Day Years Used Date Smoking Tobacco: Never Assessed Comments Unknown Sex and Gender Information Value Date Recorded Sex Assigned at Not on file Legal Sex Female 7:24 EDT Gender Identity Not on file Sexual Orientation Not on file Plan of Treatment Not on file Care Teams Fan Runner Relationship Specialty Start Date End Date Jayne Mercedes NP [address] [place] [address] PCP - General 05/28/19
--- OUTSIDE RECORDS SUMMARY | 2024-10-24 12:10 | XMS_ITS | Encounter Summary ---
[place] [address] Care Team Providers Care Associate School Psychologist Name Role Phone Lizzette Wolf APRN Primary Care Provider Unav ailable Encounter Details Date Type Department Care Team (Late st Contact Info) Description 08/04/2020 11:10 AM EDT Public [place] [address] COVID-19 ruled out Social History Tobacco Use [...] EDT) SARS-CoV-[address] Not Detected [facility] Comment: This result should be interpreted [...] on the instructions for use provided by [employer] and additional guidance provided by CDC and FDA. Testing is performed in the Clinical Genomics and Advanced Technology Laboratory within the Department of Pathology and Laboratory Medicine at [facility], certified under the Clinical Laboratory Improvement [...] fact sheets at the following FDA website: https://www.fda.gov/medical-devices/horrjxzhdpg-ieqdihw-5059-xhvfh-28-smzwkgfgu- use-a kifnesupwdubd-kafdtkt-hocvwbz/wcnjh-niettnkgymw-qrjz SARS-CoV-2 RNA Source TMD TEACHER Swab [facility] Nasopharyngeal swab (specimen) 08/04/2020 1:08 PM EDT 08/04/2020 1:08 PM EDT Comment:Symptoms->Fever / Re spiratory Symptoms Narrative Resulting Agency Comment Spec In Lab Dee Dee Kaur DO MOLECULAR ORDERABLES [facility] [place] [address] documented in this encounter Visit Diagnoses Diagnosis COVID-19 ruled out documented in this encounter Care Teams Associate School Psychologist Relationship Specialty Start Date End Date Lizzette Wolf APRN PCP - General 05/20/14 08/13/20 documented as of this encounter
--- OUTSIDE RECORDS SUMMARY | 2024-10-24 12:10 | XMS_ITS | Encounter Summary ---
Author Organization [facility] [place] [address] Care Team Providers Care Stock Clipper Name Role Phone Lizzette Wolf APRN Primary Care Provider Unav ailable Encounter Details Date Type Department Care Team (Late st Contact Info) Description 11/03/2014 Telephone [place] [phone] Hoda Moncada, RN Social History Tobacco Use [...] on filedocumented in this encounter Care Teams Stock Clipper Relationship Specialty Start Date End Date Lizzette Wolf APRN PCP - General 05/20/14 08/13/20 documented as of this encounter
--- OUTSIDE RECORDS SUMMARY | 2024-10-24 12:10 | XMS_ITS | Encounter Summary ---
Author Organization [facility] Address [address] [place] [address] Care Team Providers Care Transportation Superintendent Name Role Phone Jayne Mercedes [place] [employer] [place] LAW CLERK Primary Care Provider + Encounter Details Date Type Department Care Team (Late st Contact Info) Description 11/29/2020 Lab Requisition [facility] Pathology & Laboratory Medicine - [facility] [address] [place] [address] Outr Resulting Lab, Provider Social History Tobacco [...] Priority Date/Time Associated Diagnosis Comments ZZCOVID-19 TEST [facility] LAB PCR Today 11/29/2020 10:23 EST COVID-19 TESTING Routine 11/29/2020 10:2 3 EST documented in this encounter Results * COVID-19 TEST [facility] PCR (11/29/2020 10:23 EST) Swab ENTIRE NASOPHARYNX / Unknown 11/29/2020 10:23 EST 11/29/2020 17:01 EST us Provider Outr Resulting Lab MICROBIOLOGY - GENER AL ORDERABLES Final Result [facility] [address] [place] [address] * COVID-19 TESTING (11/29/2020 10:23 EST) COVID-19 rt-PCR Result Negative Negative 11/30/2020 12:29 EST [facility] Comment: This test has [...] developed and its performance characteristics determined by [facility]. It has not been cleared or approved [...] testing. This test is based on the [facility] COVID-19 Emergency Use Authorization (EUA) assay, with minor modification as defined by the FDA Performed on the Applied EquityMetrixo 7 Flex RT-PCR System. Performing Lab [facility] Lab 11/30/2020 12:29 EST [facility] Swab 11/29/2020 10:2 3 EST 11/29/2020 17:01 EST us Provider Outr Resulting Lab MICROBIOLOGY - GENER AL ORDERABLES Final Result [facility] [address] [place] [address] documented in this encounter Visit Diagnoses Not on filedocumented in this encounter Care Teams Transportation Superintendent Relationship Specialty Start Date End Date Jayne Mercedes NP [address] [address] PCP - General 05/28/19 documented as of this encounter
--- OUTSIDE RECORDS SUMMARY | 2024-10-24 12:10 | XMS_ITS | Encounter Summary ---
Author Organization [facility] [place] [address] [place] [address] Care Team Providers Care Claim Taker Name Role Phone Ashley Wolf APRN Primary Care Provider Unav ailable Encounter Details Date Type Department Care Team (Latest Contact Info) Description 09/11/2014 7:30 PM EST Procedure visit Sleep Center at [facility] [address] [place] [address] Esther Delcid DO HEATHER (obstructive sleep apnea) [...] for T&A consideration. - f/u with Dr. Delcid in 2 months after T&A - should T&A not indicated as per ENT evaluation - will schedule the patient for CPAP titrationtrial. Patient confirms we may forward notes to ASHLEY WOLF APRN The study was discussed with Dr. Bonilla. Esther Delcid M.D. ( Sleep Medicine Fellow) Study Scoring Results: [facility] Pediatric REPORT Patient Name: Parul Solano Study Type: PEDIATRIC Sex: Female Study Date: 09/11/2014 Date of : 2005 Hospital #: [id number] Age: 9 Referring Physician: Height: 5' Sleep [...] <30 0.0 0.0 0.0 0.0 0.1 0.0 >=30, <=40 0.0 0.0 1.8 0.5 1.8 0.4 >=40, <=47 82.9 93.7 356.6 93.6 439.5 93.6 >=47, <=50 5.6 6.3 21.6 5.7 27.2 5.8 >=50, <=55 0.0 0.0 0.0 0.0 0.0 0.0 >=55, <=65 0.0 0.0 0.0 0.0 0.0 0.0 >=65, <=75 0.0 0.0 0.0 0.0 0.0 0.0 >=75 0.0 0.0 0.0 0.0 0.0 0.0 Heart [...] (pediatric) documented in this encounter Care Teams Claim Taker Relationship Specialty Start Date End Date Ashley Wolf, CEASAR PCP - General 05/20/14 08/13/20 documented as of this encounter
--- OUTSIDE RECORDS SUMMARY | 2024-10-24 12:10 | XMS_ITS | Encounter Summary ---
Author Organization [facility] Address [facility] [place] [address] Care Team Providers Care Weatherization Administrator Name Role Phone LucianoLizzette Kamala MCDONOUGH Primary Care Provider Unav ailable Encounter Details Date Type Department Care Team (Late st Contact Info) Description 12/23/2014 8:37 AM EST Anesthesia Event [place] [address] Tanisha Du MD [facility] [place] [address] Itz Rodriguez MD Anesthesia Record Procedure Summary Procedure Name Responsible [...] adenoids.); 06/26/22 (LDA cleanup utility RA#[id number]); 1715 ([facility] cleanup utility RA#[id number]) 12/23/14 0000 by Hui Chaves RN 06/26/22 1715 by Maegan Chaudhari (RETIRED) Peripheral IV Line - Single Lumen 12/23/14; 0837; 20 gauge; 12/23/14; 1020 (cannula intact, gauze applied) 12/23/14 0837 by Itz Rodriguez MD 12/23/14 1020 by Jocelyne Garcia RN ETT Mask Ventilation: Ea sy (1); ETT Type: Cuffed; ETT Size: 6 [...] full Cardiovascular Assessment: Pulmonary Assessment: Dental Assessment: [facility] Assessment: Anesthesia Plan: ASA 2 general, Generally healthy 9 year old female with a history of mild HEATHER/sleep disordered breathing who presents for tonsillectomy and adenoidectomy. She had a cold approximately 1 month ago and feels well now except persistent non-productive cough.No fever or other remaining constitutional signs. Informed Consent: [facility]. Assessment: documented in this encounter Plan of [...] on Sun12/23/14 at 0858, Until Sun12/23/14 at 0927, Anesthesia Intra-op, Routine Given 12/23/2014 9:09 AM EST 2 mcg Given 12/23/2014 9:07 AM EST 2 mcg Given 12/23/2014 9:04 AM EST 2 mcg fentaNYL 50mcg/mL injection PRN, Starting on Sun12/23/14 at 0854, Until Sun12/23/14 at 0927, Pain, Anesthesia Intra-op, Routine Given 12/23/2014 8:54 AM EST 25 mcg ondansetron (ZOFRAN) injection PRN, Starting on Sun12/23/14 at 0857, Until Sun12/23/14 at 0927, Nausea, Anesthesia Intra-op, Routine Given 12/23/2014 8:57 AM EST 4 mg propofol (DIPRIVAN) infusion CONTINUOUS PRN, Starting on Sun12/23/14 at 0850, Until Sun12/23/14 at 0927, Anesthesia Intra-op, Routine New Bag 12/23/2014 8:50 AM EST 50 mcg/kg/min 14 mL/hr documented in this encounter Care Teams Weatherization Administrator Relationship Specialty Start Date End Date Lizzette Wolf, SR TECHNICAL SALES CONSULTANT PCP - General 05/20/14 08/13/20 documented as of this encounter
--- OUTSIDE RECORDS SUMMARY | 2024-10-24 12:10 | XMS_ITS | Encounter Summary ---
Author Organization [facility] Address [facility] [place] [address] Care Team Providers Care Superintendent Quarry Name Role Phone Luciano Ashley Kamala MCDONOUGH Primary Care Provider Unav ailable Encounter Details Date Type Department Care Team (Late st Contact Info) Description 12/23/2014 8:53 AM EST - 12/23/2014 9:51 AM EST [place] [address] Francoise Ford MD [facility] [place] [address] TONSILLECTOMY AND ADENOIDECTOMY; UNDER AGE 12 (WRVU [...] soreness, which usually goes away in 12-24hours. [facility] - Information Same Day Surgery * [...] acetaminophen-narcotic combination medication (Lortab or Roxicet) with xsfs-tph-yhwpqyp ibuprofen (Motrin, Advil) in a staggered fashion. Each medicine, when used alone, is given every 6 hours; however,if you stagger the dosing and go fhbs-zhe-qdjyr between the two medications, you can provide [...] you are concernedabout your child???s nutrition, offer [place] Instant Breakfast or PediaSure. Fever: A low-grade [...] may have in the post-operative period. The [facility] carbon paste mixer operator can be reached at . The [...] Francoise Ford MD PhD Pediatric Otolaryngology [facility] [place], [place] [address] Office Source Note - Francoise Ford MD - 12/22/2014 7:54 PM EST Pediatric Otolaryngology Consultation Note Date of Visit: 11/02/2014 Location of Visit: Otolaryngology Clinic, [facility] Patient: Parul Solano ([id number]; 2005) Primary Care Provider: ASHLEY WOLF APRN [...] no known allergies. Social History: Lives [place] [address], with dad, step-mom, 2 brothers, 1 sister, [...] Visit: 11/02/2014 Location of Visit: Otolaryngology Clinic, [facility] Patient: Parul Solano ([id number]; 2005) Primary Care Provider: ASHLEY WOLF APRN [...] no known allergies. Social History: Lives in [place] [address], with dad, step-mom, 2 brothers, 1 sister, [...] Ford MD - 12/23/2014 9:21 AM EST [facility] Operative Note Patient Name: Parul Solano : [id number] MR#: [id number] Case Date: 12/23/2014 Surgeon: Surgeon(s) and Role: [...] (12/23/2014 9:20 AM EST) Final Diagnosis ? [facility] ? Provider: ?? FRANCOISE FORD ?Pt. Name: ?? PARUL SOLANO ? Acc #: ?[id number] ?Pt. ? Col Date: ?? 12/23/2014 ? [...] Diagnosis: ? Same 12/24/2014 7:11 AM EST [facility] BILATERAL PALATINE TONSILS / Unknown 12/23/2014 9:20 AM EST 12/23/2014 9:20 AM EST Francoise Fodr MD PATHOLOGY/CYTOLOGY O [place] Performing Organization Address [facility]/ZIP Co de Phone Number HANNA MONTEIRO [facility] [place] [address] * Specimen to Pathology (surgical or derm) (12/23/2014 9:11 AM EST) AP Specimen 12/23/2014 9:11 AM EST 12/23/2014 9:11 AM EST Narrative HANNA MONTEIRO - 12/23/2014 9:11 AM EST Specimen requisition ordered. ??Separate Pathology report to follow Francoise Ford MD PATHOLOGY/CYTOLOGY O [place] Performing Organization Address [facility] Co de Phone Number HANNA MONTEIRO documented [...] is 21.7 mg/mL., Routine 0952 (Given - [facility] er: Jocelyne Garcia RN) documented in this encounter Care Teams Superintendent Quarry Relationship Specialty Start Date End Date Ashley Wolf, QUALITY CONTROL INSPECTOR HEADING PCP - General 05/20/14 08/13/20 documented as of this encounter
--- OUTSIDE RECORDS SUMMARY | 2024-10-24 12:10 | XMS_ITS | Encounter Summary ---
Author Organization [facility] Address [place] [address] Care Team Providers Care Computer Customer Support Specialist Name Role Phone Lizzette Wolf APRN Primary Care Provider Unav ailable Reason for Referral * Consultation (Routine) - Closed Specialty Diagnoses / Procedures Referred By Shira wiseman Referred To Contact Sleep Center Diagnoses Snoring disorder Esther Delcid DO [facility] [place] [address] Esther Delcid V [facility] [place] [address] Referral ID Status Reason Start Date Expiration Date V isits Requested Visits Authorized [id number] Closed Test Only 08/01/2014 01/28/2015 1 1 Encounter Details Date Type Department Care Team (Late st Contact Info) Description 08/01/2014 Orders Only Sleep Center at [facility] [address] [place] [address] Esther Delcid DO Snoring disorder (Primary Dx) Social History Tobacco [...] abnormality documented in this encounter Care Teams Computer Customer Support Specialist Relationship Specialty Start Date End Date Lizzette Wolf APRN PCP - General 05/20/14 08/13/20 documented as of this encounter
--- OUTSIDE RECORDS SUMMARY | 2024-10-24 12:10 | XMS_ITS | Encounter Summary ---
Author Organization [facility] Address [facility] [place] [address] Care Team Providers Care Surgical Services Asst Name Role Phone LucianoAshley Kamala MCDONOUGH Primary Care Provider Unav ailable Reason for Visit * Reason Comments Establish Care Encounter Details Date Type Department Care Team (Late st Contact Info) Description 11/02/2014 8:00 AM EST Office [place] [address] [facility] [place] [address] Tonsillar and adenoid hypertrophy; HEATHER (obstructive sleep [...] 11/02/2014 7:5 3 AM EST Growth Chart: [facility] (Girls, 2- 20 Years) documented in this encounter Progress Notes * Francoise Pagan MD - 11/02/2014 8:04 AM EST Pediatric Otolaryngology Consultation Note Date of Visit: 11/02/2014 Location of Visit: Otolaryngology Clinic, [facility] Patient: Parul Solano ([id number]; 2005) Primary Care Provider: ASHLEY WOLF APRN [...] no known allergies. Social History: [place] [place] [address], with dad, step-mom, 2 brothers, 1 sister, [...] concerns or problems. Francoise Pagan MD, PhD Dining Room Manager Pediatric Otolaryngology [facility] [place], [place] [address] Office documented in this encounter Plan of [...] (pediatric) documented in this encounter Care Teams Surgical Services Asst Relationship Specialty Start Date End Date Ashley Wolf, BATCH BLENDER PCP - General 05/20/14 08/13/20 documented as of this encounter
--- OUTSIDE RECORDS SUMMARY | 2024-10-24 12:10 | XMS_ITS | Encounter Summary ---
Author Organization [facility] [place] [address] Care Team Providers Care Bench Hand Machine Name Role Phone Lizzette Wolf APRN Primary Care Provider Unav ailable Encounter Details Date Type Department Care Team (Late st Contact Info) Description 07/22/2014 1:00 PM EDT Office Visit Sleep Center at [facility] [address] [place] [address] Esther Delcid V, Snoring disorder (Primary Dx) Social History Tobacco [...] as her attentivness and level of anxiety. aPrul is also complaining of recurrent headaches. The [...] same but usually 7-8 am Daytime Symptoms: [place]: was not recorded Upon Awakening: sometimes yes, [...] mass index is 18.79 kg/(m^2). Filed Vitals: 07/22/14 1314 BP: 104/68 Pulse: 81 Height: 152.4 [...] abnormality documented in this encounter Care Teams Bench Hand Machine Relationship Specialty Start Date End Date Lizzette Wolf APRN PCP - General 05/20/14 08/13/20 documented as of this encounter
[2024-10-27 18:29] LABS: Alternaria Tenuis IgE <0.10 kU/L (<0.70); Aspergillus Fumigatus IgE <0.10 kU/L (<0.70); Cladosporium IgE <0.10 kU/L (<0.70); Epicoccum purpurascens IgE <0.10 kU/L (<0.70); Fusarium moniliforme, IgE <0.10 kU/L (<0.70); Penicillium chrysogenum IgE <0.10 kU/L (<0.70); Stemphyllium IgE <0.10 kU/L (<0.70)
[2024-10-30 09:15] LABS: Misc Referral (MAYO) See Comments
[2024-10-30 09:17] LABS: Misc Referral (MAYO) See Comments
[2024-10-30 17:37] LABS: CLASS 0; Rhodotorula IgE <0.35 kU/L (<0.35)
== END 2024-10-24 12:09 | disposition home or self-care (01) ==
LOC: LBO 12:09
PROVIDERS: PCP Nurse Practitioner Family; Visit Provider Physician Assistant
DX: Z01.82 Encounter for allergy testing
CPT/HCPCS: 86003